=== PATIENT | male | born 1960 | race Caucasian/White ===

== ENCOUNTER 2023-09-16 07:00 | Outpatient (OUT) | payer BC, SELFPAY | END 2023-09-16 07:01 | disposition home or self-care (01) | LOC: SLEEP 07:00 | PROVIDERS: PCP Psychiatry & Neurology Neurology; Visit Provider Psychiatry & Neurology Neurology | DX: G47.33 Obstructive sleep apnea (adult) (pediatric) (principal) | CPT/HCPCS: 95806 ==

== ENCOUNTER 2023-11-29 10:56 | Outpatient (RCR) | payer BC, SELFPAY | END 2023-12-01 07:00 | disposition home or self-care (01) | LOC: PT 10:56 | PROVIDERS: PCP Psychiatry & Neurology Neurology; Visit Provider Orthopaedic Surgery | DX: Z47.1 Aftercare following joint replacement surgery (principal); Z96.652 Presence of left artificial knee joint | CPT/HCPCS: 97110; 97112; 97161 ==

== ENCOUNTER 2023-12-02 10:38 | Outpatient (RCR) | payer BC, SELFPAY | END 2024-01-17 12:26 | disposition home or self-care (01) | LOC: PT 10:38 | PROVIDERS: PCP Psychiatry & Neurology Neurology; Visit Provider Orthopaedic Surgery | DX: Z47.1 Aftercare following joint replacement surgery (principal); Z96.652 Presence of left artificial knee joint | CPT/HCPCS: 97110; 97112; 97140 ==

== ENCOUNTER 2024-09-16 11:11 | Emergency (ER) | payer BC, SELFPAY ==
[2024-09-16 11:14] VITALS: BP 183/104; PULSE 99; TEMP 36.9; O2SAT 96; BMI 29.7
--- OUTSIDE RECORDS SUMMARY | 2024-09-16 11:21 | XMS_ITS | CCD ---
Author Organization [facility] Care Team Providers Care Workers' Compensation Mediator Name Role Phone JOHNNIE MULLER Primary Care Physician [phone] Yolanda Arreola Unavailable Unavailable Johnnie Muller Unavailable Renee Del Toro Unavailable Florinda Pierce Unavailable DR JOHNNIE MULLER Primary Care Unavailabl e AMBER SPIVEY Attending Unavailable AMBER SPIVEY Consulting Unavailable AMBER SPIVEY Admitting Unavailable NO FAMILY, PHYSICIAN Primary Care Provider Unava ilable ANNE Pierce Attending Provider MD Johnnie Muller Primary Care Provider [phone] MD Johnnie Muller Attending Provider [phone] DO Wayne Adkins Referring Provider [phone] Dr. Matt Adkins Attending Unava ilable Tania Upton Unavailable Unavailable Johnnie Muller MD Primary Care Provider Rodríguez Jesus Attending Unavailable Lee GARZON Attending Unavailable Lee GARZON Attending Unavailable Mirna VILLA Attending Unavailable DO Pipe Chou Admitting Unavailable DO Tang Pipe A Referring Unavailable DO Pipe Chou A Attending Unavailable DO Tang Pipe A Referring Unavailable DO Pipe Chou Attending Unavailable DO Pipe Chou A Admitting Unavailable MD Johnnie Muller Primary Care Provider ANNE Pierce Attending Provider JACKELYN SHELLEY DO Attending Unavailable NO FAMILY PHYSICIAN, [facility] Primary Care Unavail able PIPE CHOU Attending Unavailable PIPE CHOU Referring Unavailable ABMER SPIVEY Attending Unavailable PIPE CHOU Attending Unavailable PIPE CHOU Referring Unavailable PIPE CHOU Attending Unavailable AMBER SPIVEY Attending Unavailable PIPE CHOU Attending Unavailable PIPE CHOU Referring Unavailable CODEY Chavez Attending Provider Johnnie Muller Primary Care Unavailable Johnnie Muller Admitting Unavailable Florinda Pierce Consulting Unavailable Johnnie Muller Attending Unavailable Johnnie Muller Primary Care Unavailable Gela Chavez Attending Unavailable Gela Chavez Admitting Unavailable Florinda Pierce Attending Unavailable Florinda Pierce Admitting Unavailable Johnnie Muller Primary Care Unavailable Medications Current Medications Medication Drug Class(es) Dates Sig (Normalized) Sig (Original) ascorbic acid 1000 mg oral tablet (8 sources) Vitamin C Start: 10-22-2023 take 1000 mg by mouth once daily Vitamin C 1,000 mg, Oral, Daily, Refills(s) 0, Prophylaxis Start Date: 10/22/23 Status: Ordered {1 (Ascorbic Acid 7540 MG / POLYETHYLENE GLYCOL 3350 24871 MG / Potassium Chloride 1200 MG / Sodium Ascorbate 44632 MG / Sodium Chloride 3200 MG Powder for Oral Solution) / 1 (POLYETHYLENE GLYCOL 3350 [id number] MG / Potassium Chloride 1000 MG / Sodium Chlori (2 sources) Osmotic Laxative, Vitamin C Start: 05-02-2022 take 1 dose by mouth once Plenvu oral powder for reconstitution See Instructions, 1 EA, Refill(s) 0, Per physicians instructions prior to colonoscopy, [facility], 183, cm, 05/02/22 11:01:00 EDT, Height/Length Dosing, 95, kg, 05/02/22 11:01:00 EDT, Weight Dosing Start Date: 05/02/22 Status: Ordered aspirin 81 mg delayed release oral tablet (1 source) Platelet Aggregation Inhibitor, Nonsteroidal Anti-inflammatory Drug Start: 11-06-2023 End: 12-06-2023 take 2 tablets by mouth once daily aspirin 81 mg Oral EC Tab 162 mg = 2 tab(s), Oral, Daily, X 30 day(s), # 60 tab(s), Refills(s) 0, Pharmacy: [id number], 183, cm, 10/22/23 12:24:00 EST, Height/Length Dosing, 97.2, kg, 10/22/23 12:24:00 EST, Weight Dosing Start Date: 11/06/23 Stop Date: 12/06/23 Status: Ordered celecoxib 100 mg oral capsule (4 sources) Nonsteroidal Anti-inflammatory Drug Start: 11-06-2023 CeleBREX 100 MG capsule Take 100 mg by mouth 0 11/06/2023 Active cephalexin 500 mg oral capsule (1 source) Cephalosporin Antibacterial Start: 11-06-2023 End: 11-13-2023 take 1 capsule by mouth every eight hours Keflex 500 mg Cap 500 mg = 1 cap(s), Oral, q8hr, X 7 day(s), # 21 cap(s), Refills(s) 0, Pharmacy: [id number], 183, cm, 10/22/23 12:24:00 EST, Height/Length Dosing, 97.2, kg, 10/22/23 12:24:00 EST, Weight Dosing Start Date: 11/06/23 Stop Date: 11/13/23 Status: Ordered cholecalciferol 0.125 mg oral tablet (3 sources) Vitamin D cholecalciferol (Vitamin D-3) 125 MCG (5000 UT) tablet as directed Orally 0 Active CPAP Machine (17 sources) CPAP Machine Dr. Valdivia Active docusate sodium 100 mg oral capsule (4 sources) Start: 11-06-2023 Colace 100 MG capsule Take 100 mg by mouth 0 11/06/2023 Active Elderberry preparation (3 sources) Elderberry 500 M G capsule Elderberry 0 Active famciclovir 500 mg oral tablet (1 source) Herpes Simplex Virus Nucleoside Analog DNA Polymerase Inhibitor Start: 02-08-2023 take 1 tablet by mouth every eight hours Famciclovir 500 MG 1 tablet Orally three times a day for 7 days Jan, Active Garlic preparation (5 sources) Non-Standardized Food Allergenic Extract Start: 10-22-2023 GARLIC PO Daily, Refill(s) 0, Prophylaxis 0 10/22/2023 Active Start: 10-22-2023 garlic Daily, Refill(s) 0, Prophylaxis Start Date: 10/22/23 Status: Ordered levothyroxine sodium 0.05 mg oral tablet (15 sources) l-Thyroxine Start: 07-08-2024 take 50 ug by mouth once daily Levothyroxine Active 50 MCG PO Daily July 08, 2024 1:00pm Start: 01-23-2024 End: 07-08-2024 take 1 tablet by mouth once daily Levothyroxine (Synthroid) 25 mcg tablet Discontinued 25 MCG PO Daily January 23, 2024 1:00am July 08, 2024 1:00pm Start: 10-22-2023 take 1 tablet by tawana th once daily levothyroxine 25 mcg (0.025 mg) Tab 25 mcg = 1 tab(s), Oral, Daily, Refills(s) 0, Thyroid Start Date: 10/22/23 Status: Ordered Start: 08-07-2023 take 1 tablet by tawana th once daily in the morning levothyroxine (Synthroid, Levoxyl) 25 MCG tablet TAKE 1 TABLET BY MOUTH ONCE DAILY IN THE MORNING ON AN EMPTY STOMACH FOR 30 DAYS 0 08/07/2023 Active Start: 06-14-2023 take 1 tablet by tawana th once daily in the morning Synthroid 25 MCG 1 tablet in the morning on an empty stomach Orally Once a day for 90 days Jun, Active losartan potassium 25 mg oral tablet (2 sources) Angiotensin 2 Receptor Faby Start: 11-30-2020 take 1 tablet by mouth once daily Cozaar 25 mg Tab 25 mg = 1 tab(s), Oral, Daily, # 15 tab(s), Refills(s) 0 Start Date: 11/30/20 Status: Ordered Magnesium (10 sources) Magnesium Active Multivitamin Adult - (17 sources) Multivitamin Sebastián lt - as directed Orally Active Multivitamin preparation (4 sources) Start: 01-23-2024 take 1 tablet by mouth once daily Multivitamin Active 1 TAB PO Daily January 23, 2024 1:00am Start: 10-22-2023 multivitamin O ral, Daily, Refill(s) 0, Prophylaxis Start Date: 10/22/23 Status: Ordered PHENobarbital 32.4 mg oral tablet (20 sources) Start: 01-23-2024 take 32.4 mg by mouth three times daily Phenobarbital Active 32.4 MG PO Three times daily January 23, 2024 1:00am Start: 11-18-2023 End: 05-16-2024 take 1 tablet by mouth in the morning, then take 1 tablet by mouth in the evening, then take 1 tablet by mouth at bedtime PHENobarbital (Luminal) 32.4 MG tablet Indications: Focal epilepsy (CMS/HCC) Take 1 tablet (32.4 mg) by mouth in the morning and 1 tablet (32.4 mg) in the evening and 1 tablet (32.4 mg) before bedtime. 90 tablet 5 11/18/2023 05/16/2024 Active Start: 08-30-2010 take 1 tablet by tawana th three times daily phenobarbital 30 mg oral tablet = 1 tab(s), Oral, TID, Refills(s) 0, Seizure Start Date: 08/30/10 Status: Ordered take 1 tablet by tawana th every eight hours PHENobarbital 32.4 MG 1 tablet Orally Three times a day Dr. Valdivia Active simvastatin 40 mg oral tablet (20 sources) HMG-CoA Reductase Inhibitor Start: 07-23-2024 End: 08-11-2024 take 1 tablet by mouth once daily in the evening Simvastatin Active 0 .ROUTE .COMPLEX 90 August 11, 2024 2:16pm TAKE 1 TABLET BY MOUTH ONCE DAILY IN THE EVENING Start: 07-06-2024 End: 07-23-2024 take 40 mg by mouth once daily Simvastatin Discontinue d 40 MG PO Daily July 06, 2024 9:58am July 23, 2024 7:05am Start: 01-23-2024 End: 07-06-2024 take 1 tablet by mouth once daily in the evening Simvastatin Discontinued 0 .ROUTE .COMPLEX 90 April 28, 2024 7:27am July 06, 2024 9:58am TAKE 1 TABLET BY MOUTH ONCE DAILY IN THE EVENING Start: 01-23-2024 End: 01-23-2024 take 40 mg by mouth once daily in the evening Simvastatin Discontinued 40 MG PO Every evening January 23, 2024 1:00am January 23, 2024 9:55am Start: 09-12-2021 take 1 tablet by tawana th in the evening simvastatin (Zocor) 40 MG tablet Take 40 mg by mouth in the evening. 0 03/30/2023 Active Start: 08-30-2010 take 1 tablet by tawana th once daily at bedtime simvastatin 80 mg Tab 80 mg = 1 tab(s), Oral, Once a day (at bedtime), Refills(s) 0, High cholesterol Start Date: 08/30/10 Status: Ordered ubidecarenone 100 mg / vitam in e 5 unt oral capsule (3 sources) coenzyme Q-10 10 0 MG capsule 1 (one) time each day at the same time. 0 Active Vitamin B Complex (10 sources) Vitamin B Comple x - as directed Orally Active vitamin b12 5 mg disintegrat ing oral tablet (3 sources) Vitamin B12 Cyanocobalamin ( Vitamin B-12) 5000 MCG tablet dispersible as directed Orally 0 Active Vitamin C 1000 MG (14 sources) take 1 tablet by mouth once oralia y Vitamin C 1000 MG 1 tablet Orally Once a day for 30 day(s) Active Vitamin D (2 sources) Start: 10-22-2023 Vitamin D Oral , Daily, Refills(s) 0, Prophylaxis Start Date: 10/22/23 Status: Ordered Vitamin D-3 5000 UNIT (17 sources) Vitamin D-3 5000 UNIT as directed Orally Active Completed/Discontinued Medications Medication Drug Class(es) Dates Sig (Normalized) Sig (Original) acetaminophen 325 mg / oxyCODONE hydrochloride 5 mg oral tablet (1 source) Opioid Agonist Start: 11-06-2023 Percocet 5 mg-325 mg oral tablet See Instructions, 40 tab(s), Refill(s) 0, 1-2 tab(s) Oral q4hr, [facility], 183, cm, 10/22/23 12:24:00 EST, Height/Length Dosing, 97.2, kg, 10/22/23 12:24:00 EST, Weight Dosing Start Date: 11/06/23 Status: Ordered lisinopril 5 mg oral tablet (6 sources) Angiotensin Converting Enzyme Inhibitor Start: 09-26-2021 take 1 tablet by mouth every twenty-four hours Lisinopril 5 MG 1 tablet Orally Once a day for 90 days Sep, Not-Taking phenytoin 50 mg chewable tablet (20 sources) Anti-epileptic Agent Start: 09-08-2015 End: 07-26-2024 take 1 tablet by mouth at bedtime Phenytoin (Dilantin Infatabs) 50 mg tablet,chewable Discontinued 50 MG PO .COMPLEX January 23, 2024 1:00am July 06, 2024 9:58am 50 mg orally at HS; Start: 08-30-2010 take 1 capsule by [facility] three times daily Dilantin 100 mg oral capsule, extended release 100 mg = 1 cap(s), Oral, TID, Refills(s) 0, Seizure Start Date: 08/30/10 Status: Ordered Start: 06-22-2009 End: 02-08-2024 take 1 capsule by mouth three times daily Phenytoin Sodium Extended (Dilantin Extended) 100 mg capsule Active 100 MG PO Three times daily January 23, 2024 1:00am Problems Active Problems Problem Classification Problem Date Documented Da te Episodic/Chronic Abdominal pain (4 sources) Abdominal pain 05-01-2022 Episodic Deficiency and other anemia (1 source) Other dietary vitamin B12 deficiency anemia; Translations: [OTH DIETARY VITAMIN B12 DEF ANEMIA] Onset: 01-28-2023 Episodic Diabetes mellitus without complication (20 sources) Impaired fasting glycemia; Translations: [Impaired fasting glucose] Onset: 09-14-2024 Episodic Diseases of white blood cells (19 sources) Decreased blood leukocyte number; Translations: [Decreased white blood cell count, unspecified] 07-06-2024 Chronic Disorders of lipid metabolism (20 sources) Hypercholesterolemia ; Translations: [Hyperlipidemia] Onset: 09-12-2021 Resolved: 05-07-2022 05-20-2014 Chronic Diverticulosis and diverticulitis (4 sources) Diverticular disease 02-22-2020 Chronic Epilepsy; convulsions (20 sources) Seizure disorder; Translations: [Epilepsy, unspecified, not intractable, without status epilepticus] Onset: 02-01-2022 Resolved: 05-07-2022 Chronic Epilepsy; convulsions (8 sources) Seizure; Translations: [Seizure disorder] 05-20-2014 Episodic Essential hypertension (20 sources) Hypertensive disorder; Translations: [Essential hypertension] Onset: 09-26-2021 Resolved: 05-07-2022 02-12-2014 Chronic Gastritis and duodenitis (4 sources) Gastritis 02-22-2020 Episodic Hyperplasia of prostate (4 sources) Benign prostatic hypertrophy with outflow obstruction 05-26-2020 Chronic Immunizations and screening for infectious disease (2 sources) Exposure to communicable disease; Translations: [Contact with and (suspected) exposure to other viral communicable diseases] Onset: 01-28-2023 Episodic Malaise and fatigue (3 sources) Other fatigue; Translations: [Other malaise and fatigue] Episodic Nonspecific chest pain (1 source) Other chest pain Episodic Nutritional deficiencies (1 source) Vitamin D deficiency, unspecified; Translations: [Vitamin D deficiency, unspecified] Onset: 07-07-2024 Chronic Nutritional deficiencies (3 sources) Pyridoxine deficiency; Translations: [Deficiency of other specified B group vitamins] Onset: 01-28-2023 Episodic Osteoarthritis (4 sources) Osteoarthritis of knee; Translations: [Unilateral primary osteoarthritis, left knee] Onset: 11-07-2023 Chronic Other and unspecified benign neoplasm (1 source) Polyp of colon; Translations: [Polyp of colon] Onset: 05-21-2022 Episodic Other and unspecified benign neoplasm (4 sources) Benign neoplasm of kidney 05-26-2020 Episodic Other and unspecified benign neoplasm (4 sources) History of polyp of colon 05-01-2022 Episodic Other connective tissue disease (3 sources) History of total knee arthroplasty; Translations: [Presence of left artificial knee joint] Onset: 11-17-2023 11-17-2023 Chronic Other connective tissue disease (1 source) Myalgia, unspecified site; Translations: [MYALGIA UNSPECIFIED SITE] Onset: 01-28-2023 Episodic Other diseases of kidney and ureters (4 sources) Renal mass 05-26-2020 Chronic Other disorders of stomach and duodenum (14 sources) Indigestion; Translations: [Functional dyspepsia] 07-06-2024 Episodic Other fractures (1 source) Fracture of fifth lumbar vertebra; Translations: [Unspecified fracture of fifth lumbar vertebra, initial encounter for closed fracture] 07-28-2024 Episodic Other fractures (1 source) Fracture of fourth lumbar vertebra; Translations: [Unspecified fracture of fourth lumbar vertebra, initial encounter for closed fracture] 07-28-2024 Episodic Other fractures (1 source) Fracture of lumbar spine; Translations: [Unspecified fracture of unspecified lumbar vertebra, initial encounter for closed fracture] 07-28-2024 Episodic Other fractures (1 source) Unspecified fracture of unspecified lumbar vertebra, initial encounter for closed fracture; Translations: [Closed fracture of lumbar vertebra without mention of spinal cord injury] 07-28-2024 Episodic Other fractures (1 source) Unspecified fracture of fourth lumbar vertebra, initial encounter for closed fracture; Translations: [Unspecified fracture of fourth lumbar vertebra, initial encounter for closed fracture] Onset: 08-26-2024 Episodic Other fractures (1 source) Unspecified fracture of fifth lumbar vertebra, initial encounter for closed fracture; Translations: [Unspecified fracture of fifth lumbar vertebra, initial encounter for closed fracture] Onset: 08-26-2024 Episodic Other lower respiratory disease (7 sources) Abnormal breathing; Translations: [Unspecified abnormalities of breathing] 07-06-2024 Episodic Other lower respiratory disease (3 sources) Unspecified abnormalities of breathing Episodic Other male genital disorders (4 sources) 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 Other nervous system disorders (1 source) Polyneuropathy, unspecified; Translations: [POLYNEUROPATHY UNSPECIFIED] Onset: 01-28-2023 Chronic Other nervous system disorders (1 source) Hereditary and idiopathic neuropathy, unspecified; Translations: [HEREDITARY IDIOPATH NEUROPATHY UNS] Onset: 01-28-2023 Chronic Other nervous system disorders (3 sources) Difficulty walking; Translations: [Difficulty in walking, not elsewhere classified] Onset: 11-17-2023 11-17-2023 Chronic Other non-traumatic joint disorders (3 sources) Pain in left knee; Translations: [Pain in joint, lower leg] Onset: 11-17-2023 11-17-2023 Episodic Other screening for suspected conditions (not mental disorders or infectious disease) (4 sources) Encounter for screening for malignant neoplasm of prostate; Translations: [Other specified abnormal findings of blood chemistry] Onset: 01-28-2023 Episodic Peripheral and visceral atherosclerosis (1 source) Generalized atherosclerosis; Translations: [GENERALIZED ATHEROSCLEROSIS] Onset: 01-28-2023 Chronic Residual codes; unclassified (19 sources) Sleep apnea; Translations: [Sleep apnea, unspecified] 07-06-2024 Chronic Residual codes; unclassified (20 sources) Obstructive sleep apnea syndrome; Translations: [Obstructive sleep apnea (adult) (pediatric)] Onset: 04-30-2023 10-22-2023 Chronic Residual codes; unclassified (4 sources) Obstructive sleep apnea (adult) (pediatric) Onset: 05-07-2022 Resolved: 05-07-2022 Chronic Residual codes; unclassified (2 sources) Sleep apnea, unspecified; Translations: [Unspecified sleep apnea] Onset: 02-01-2022 Resolved: 02-01-2022 Chronic Spondylosis; intervertebral disc disorders; other back problems (6 sources) Backache; Translations: [Nerve root disorder] 02-22-2020 Episodic Thyroid disorders (16 sources) Hypothyroidism; Translations: [Hypothyroidism, unspecified] Onset: 09-14-2024 Chronic Past or Other Problems Problem Classification Problem Date Documented Da te Episodic/Chronic Other circulatory disease (1 source) Elevated blood-pressure reading, without diagnosis of hypertension Onset: 09-12-2021 Resolved: 09-12-2021 Episodic Other disorders of stomach and duodenum (2 sources) Functional dyspepsia Onset: 03-07-2022 Resolved: 05-07-2022 Episodic Other injuries and conditions due to external causes (3 sources) H/O: head injury; Translations: [Personal history of other (healed) physical injury and trauma] Onset: 04-30-2023 04-30-2023 Episodic Results Test Name Value Interpretation Reference Range Facility Complete Blood Count Auto Di ffon 09-14-2024 Basophils (Bld) [#/Vol] 0.0 10*3/uL Normal 0.0-0.2 [facility] Comment on above: Result Comment: PERF ORMED BY: [place] [address] PATHOLOGIST FRONT DESK SUPERVISOR RAMONA GARCIA M.D. Performed By: #### L IPID, TSH3, CMP, CBC, PSAS #### [address] Basophils/100 WBC (Bld) 1.2 % Normal . Jose Enrique salazar [facility] Comment on above: Performed By: #### L IPID, TSH3, CMP, CBC, PSAS #### [address] Eosinophils (Bld) [#/Vol] 0.3 10*3/uL Normal 0.0-0.45 [facility] Comment on above: Performed By: #### L IPID, TSH3, CMP, CBC, PSAS #### [facility] [address] Eosinophils/100 WBC (Bld) 8.3 % Normal . [facility] Comment on above: Performed By: #### L IPID, TSH3, CMP, CBC, PSAS #### [address] Erythrocyte distribution width (RBC) [Ratio] 13.3 % Normal 12.0-14.8 [facility] Comment on above: Performed By: #### L IPID, TSH3, CMP, CBC, PSAS #### [address] Hematocrit (Bld) [Volume fraction] 40.9 % Normal 38.8-50.0 [facility] Comment on above: Performed By: #### L IPID, TSH3, CMP, CBC, PSAS #### [address] Hemoglobin (Bld) [Mass/Vol] 14.0 g/dL Normal 13.0-17.0 [facility] Comment on above: Performed By: #### L IPID, TSH3, CMP, CBC, PSAS #### [address] Lymphocytes (Bld) [#/Vol] 0.7 10*3/uL Low 1.00-4.8 [facility] Comment on above: Performed By: #### L IPID, TSH3, CMP, CBC, PSAS #### [address] Lymphocytes/100 WBC (Bld) 19.5 % Normal . [facility] Comment on above: Performed By: #### L IPID, TSH3, CMP, CBC, PSAS #### [address] MCH (RBC) [Entitic mass] 31.1 pg Normal 27.5-35.2 [facility] Comment on above: Performed By: #### L IPID, TSH3, CMP, CBC, PSAS #### [address] MCV (RBC) [Entitic vol] 90.7 fL Normal 83.5-101 T [facility] Comment on above: Performed By: #### L IPID, TSH3, CMP, CBC, PSAS #### [address] Mean Corpuscular HGB Conc 34.3 g/dL Normal 32.5-35.6 [facility] Comment on above: Performed By: #### L IPID, TSH3, CMP, CBC, PSAS #### [address] Monocytes (Bld) [#/Vol] 0.5 10*3/uL Normal 0.0-0.8 [facility] Comment on above: Performed By: #### L IPID, TSH3, CMP, CBC, PSAS #### [address] Monocytes/100 WBC (Bld) 12.9 % Normal . T [facility] Comment on above: Performed By: #### L IPID, TSH3, CMP, CBC, PSAS #### [place] [address] [place] Neutrophils (Bld) [#/Vol] 2.0 10*3/uL Normal 1.8-7.7 [facility] Comment on above: Performed By: #### L IPID, TSH3, CMP, CBC, PSAS #### [place] [address] [place] Neutrophils/100 WBC (Bld) 58.1 % Normal . [facility] Comment on above: Performed By: #### L IPID, TSH3, CMP, CBC, PSAS #### [address] NRBC% 0.1 /100{WBC} Normal 0-0.5 [facility] Comment on above: Performed By: #### L IPID, TSH3, CMP, CBC, PSAS #### [place] [address] [place] Platelet mean volume (Bld) [Entitic vol] 8.6 fL Normal 6.6-10.1 [facility] Comment on above: Performed By: #### L IPID, TSH3, CMP, CBC, PSAS #### [place] [address] [place] Platelets (Bld) [#/Vol] 206 10*3/uL Normal 150-450 [facility] Comment on above: Performed By: #### L IPID, TSH3, CMP, CBC, PSAS #### [address] RBC (Bld) [#/Vol] 4.51 10*6/uL Normal 3.90-5.60 [facility] Comment on above: Performed By: #### L IPID, TSH3, CMP, CBC, PSAS #### [address] WBC (Bld) [#/Vol] 3.5 10*3/uL Low 4.1-10.5 [facility] Comment on above: Performed By: #### L IPID, TSH3, CMP, CBC, PSAS #### [address] Comprehensive Metabolic Pane marisa 09-14-2024 Albumin [Mass/Vol] 4.5 g/dL Normal 3.5-5.7 [facility] Comment on above: Performed By: #### L IPID, TSH3, CMP, CBC, PSAS #### [address] Albumin/Globulin [Mass ratio] 1.5 {ratio} Normal [facility] Comment on above: Performed By: #### L IPID, TSH3, CMP, CBC, PSAS #### [address] ALP [Catalytic activity/Vol] 108 U/L High 34-104 [facility] Comment on above: Performed By: #### L IPID, TSH3, CMP, CBC, PSAS #### [address] ALT [Catalytic activity/Vol] 18 U/L Normal 7-52 [facility] Comment on above: Performed By: #### L IPID, TSH3, CMP, CBC, PSAS #### [address] Anion gap [Moles/Vol] 12.8 mmol/L Normal 6.0-15.0 [facility] e [facility] Comment on above: Performed By: #### L IPID, TSH3, CMP, CBC, PSAS #### [address] AST [Catalytic activity/Vol] 17 U/L Normal 13-39 [facility] Comment on above: Performed By: #### L IPID, TSH3, CMP, CBC, PSAS #### [address] Bilirubin [Mass/Vol] 0.5 mg/dL Normal 0.3-1.0 [facility] Comment on above: Performed By: #### L IPID, TSH3, CMP, CBC, PSAS #### [address] Calcium [Mass/Vol] 9.4 mg/dL Normal 8.6-10.3 The [facility] Comment on above: Performed By: #### L IPID, TSH3, CMP, CBC, PSAS #### [address] Chloride [Moles/Vol] 104 mmol/L Normal 98-107 [facility] Comment on above: Performed By: #### L IPID, TSH3, CMP, CBC, PSAS #### [address] CO2 [Moles/Vol] 26.1 mmol/L Normal 21.0-31.0 [facility] Comment on above: Performed By: #### L IPID, TSH3, CMP, CBC, PSAS #### [place] [address] [place] Creatinine [Mass/Vol] 0.70 mg/dL Normal 0.70-1.30 [facility] Comment on above: Performed By: #### L IPID, TSH3, CMP, CBC, PSAS #### [place] [address] [place] GFR/1.73 sq M.predicted MDRD (S/P/Bld) [Vol rate/Area] mL/min/{1.73_m2} Normal [facility] Comment on above: Performed By: #### L IPID, TSH3, CMP, CBC, PSAS #### [address] Globulin (S) [Mass/Vol] 3.0 g/dL Normal T he [facility] Comment on above: Performed By: #### L IPID, TSH3, CMP, CBC, PSAS #### [address] Glucose [Mass/Vol] 109 mg/dL High 70-100 [facility] Comment on above: Result Comment: [facility] Glucose Reference Range is dependent on time and content of last meal. Glucose of more than 200 mg/dL in a nonstressed, ambulatory subject supports the diagnosis of Diabetes Mellitus. ADA recommended reference range Performed By: #### L IPID, TSH3, CMP, CBC, PSAS #### [address] Potassium [Moles/Vol] 3.9 mmol/L Normal 3.5-5.1 [facility] Comment on above: Performed By: #### L IPID, TSH3, CMP, CBC, PSAS #### [address] Protein [Mass/Vol] 7.5 g/dL Normal 6.4-8.9 [facility] Comment on above: Performed By: #### L IPID, TSH3, CMP, CBC, PSAS #### [address] Sodium [Moles/Vol] 139 mmol/L Normal 136-145 [facility] Comment on above: Performed By: #### L IPID, TSH3, CMP, CBC, PSAS #### [address] Urea nitrogen [Mass/Vol] 13 mg/dL Normal 7-25 [facility] Comment on above: Performed By: #### L IPID, TSH3, CMP, CBC, PSAS #### [address] Free T4 (Free Thyroxine)on 1 Free T4 [Mass/Vol] 0.63 ng/dL Normal 0.61-1.12 [facility] Comment on above: Result Comment: PERF ORMED BY: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 1.0-4.0 [facility] Comment on above: Order Comment: Order Added by Discern Expert. Performed By: #### 2 728768, 4619863, 3767227, 3007984, 9184306, 39756945 ####[address] [address] Monocytes/100 WBC (Bld) 10.0 % Normal 4.0-14.0 [facility] Comment on above: Order Comment: Order Added by Discern Expert. Performed By: #### 2 504107, 9904377, 9065544, 2870857, 5465486, 15650694 ####[address] [address] Monocytes/Leukocytes Auto (Bld) [Pure # fraction] 0.8 E9/L Normal 0.2-1.0 [facility] Comment on above: Order Comment: Order Added by Discern Expert. Performed By: #### 2 105546, 4655483, 6515002, 1837875, 6454727, 26817275 ####[address] [place] [address] Neutrophils/100 WBC (Bld) 78.2 % High 36.0-75.0 [facility] Comment on above: Order Comment: Order Added by Discern Expert. Performed By: #### 2 688032, 1099176, 4536165, 1479109, 1695334, 70829566 ####[address] [place] [address] Neutrophils/Leukocytes Auto (Bld) [Pure # fraction] 6.6 E9/L Normal 2.0-7.5 [facility] Comment on above: Order Comment: Order Added by Discern Expert. Performed By: #### 2 458876, 1187743, 5499845, 7379271, 6743625, 39336470 ####[address] [place] [address] BUNon 11-07-2023 Urea nitrogen [Mass/Vol] 9 mg/dL Normal 5-21 [facility] Comment on above: Performed By: #### 2 306208, 2784678, 2104338, 6457633, 0694797, 65798244 ####[address] [place] [address] CBC w/ Auto Diffon 3 Erythrocyte distribution width (RBC) [Ratio] 12.8 % Normal 10.9-14.2 [facility] Comment on above: Performed By: #### 2 084192, 3757296, 6104447, 5607929, 1592983, 59391845 ####[address] [place] [address] Hematocrit (Bld) [Volume fraction] 36.0 % Low 37.7-49.0 [facility] Comment on above: Performed By: #### 2 734672, 7632783, 3754903, 4754383, 1842236, 05137154 ####[facility] [address] [place] [address] Hemoglobin (Bld) [Mass/Vol] 12.2 g/dL Low 13.5-17.5 [facility] Comment on above: Performed By: #### 2 685753, 5476511, 9545216, 7680533, 8281948, 64575602 ####[address] [address] MCH (RBC) [Entitic mass] 31.1 pg Normal 27.0-34.0 [facility] Comment on above: Performed By: #### 2 167560, 4434426, 5932990, 8883399, 3487330, 47984060 ####[address] [address] MCHC (RBC) [Mass/Vol] 33.9 g/dL Normal 31.4-36.0 [facility] Comment on above: Performed By: #### 2 898224, 0513516, 0916917, 8637397, 5715861, 55506264 ####[address] [address] MCV (RBC) [Entitic vol] 91.8 fL Normal 80.0-100.0 [facility] Comment on above: Performed By: #### 2 368284, 8313158, 6873193, 4341660, 6925515, 95949267 ####[address] [place] [address] Platelet mean volume (Bld) [Entitic vol] 8.5 fL Normal 6.4-10.8 [facility] Comment on above: Performed By: #### 2 814773, 7902294, 8074808, 9464799, 4129839, 28724819 ####[address] [address] Platelets (Bld) [#/Vol] 178.0 E9/L Normal 150.0-500.0 [facility] Comment on above: Performed By: #### 2 073456, 2608538, 3462299, 6638102, 1629555, 79075920 ####[facility] [address] [place] [address] RBC (Bld) [#/Vol] 3.9 E12/L Low 4.3-5.9 [facility] Comment on above: Performed By: #### 2 203717, 9446226, 7691912, 5289282, 4776062, 96431016 ####[facility] [address] [place] [address] WBC corrected for nucl RBC Auto (Bld) [#/Vol] 8.4 E9/L Normal 4.0-11.0 [facility] Comment on above: Performed By: #### 2 002239, 5401965, 1531891, 4184004, 2787882, 80264957 ####[facility] [address] [place] [address] CHEMISTRYOrdered By: SYSTEM SYSTEM on 11-07-2023 Anion gap [Moles/Vol] 11 mmol/L Normal 6 - 16 mEq/L F C [facility] Chloride [Moles/Vol] 107 mmol/L Normal 101 - 1 11 mmol/L [facility] Remisol CO2 [Moles/Vol] 26 mmol/L Normal 21 - 31 mmol/L [facility] Remisol Creatinine [Mass/Vol] 0.7 mg/dL Normal 0.5 - 1.3 mg/dL [facility] Remisol GFR/1.73 sq M.predicted among non-blacks MDRD (S/P/Bld) [Vol rate/Area] 104 mL/min/1.73 m2 Normal >=59mL/min/1 .73 m2 [facility] Chem S Comment on above: Interpretive Data: C hronic kidney disease could be indicated at eGFR's of less than 60 mL/min/1.73m2. Kidney failure is indicated at less than 15 mL/min/1.73m2. Potassium [Moles/Vol] 4.0 mmol/L Normal 3.5 - 5.3 mmol/L [facility] Remisol Sodium [Moles/Vol] 140 mmol/L Normal 135 - 145 mmol/L [facility] Remisol Urea nitrogen [Mass/Vol] 9 mg/dL Normal 5 - 21 mg/dL [facility] Remisol Consent for Anesthesiaon Consent for Anesthesia [id number]# 1.00TIFF Normal [facility] Creatinineon 11-07-2023 Creatinine [Mass/Vol] 0.7 mg/dL Normal 0.5-1.3 [facility] Comment on above: Performed By: #### 2 197679, 9286325, 9737699, 3562951, 5698772, 69055156 ####[facility] [address] [place] [address] Discharge Instructionson Discharge Instructions [id number] #1.00TIFF Normal [facility] Discharge Note-Nursingon Discharge Note-Nursing MARIAARACHEL :1960 Visit Date:11/06/2023 Inpatient Discharge Instructions Your Care Team Admitting Physician - Pipe Chou DO Referring Physician - Pipe Chou DO Reason for Your Visit OSTEOARTHRITIS LEFT KNEE Your Diagnosis Degenerative arthritis of left knee Tests Performed ABO/Rh Antibody Screen Automated Diff eGFR -- Results Pending -- UA With Cult Reflex XR Knee 1 or 2 Views Left Please visit your patient portal for your results or contact your primary care physician. This Is Your Medications List acetaminophen-oxycodo ne (Percocet 5 mg-325 mg oral tablet) ascorbic acid (Vitamin C) aspirin (aspirin 81 mg Oral EC Tab) celecoxib (CeleBREX 100 mg Cap) cephalexin (Keflex 500 mg Cap) docusate (Colace 100 mg Cap) ergocalciferol (Vitamin D) garlic levothyroxine (levothyroxine 25 mcg (0.025 mg) Tab) multivitamin phenobarbital (phenobarbital 30 mg oral tablet) phenytoin (Dilantin 100 mg oral capsule, extended release) phenytoin (phenytoin 50 mg Chew Tab) simvastatin (simvastatin 80 mg Tab) Procedure History Total knee replacement (11/06/2023), Colonoscopy (05/21/2022), History of knee surgery, left shoulder surgery. Discharge Vitals Temperature (Oral) 37.1 ?C Heart Rate (Monitored) 88 Respiratory Rate 18 Blood Pressure 126/70 What to do next Instructions From Your Doctor Event Name Event Result Pending Diagnostic Test Results None Pharmacy Information Other: [facility] [place] [facility] [place] New Follow Up Appointments after Discharge Follow Up with Pipe Chou When: Where: [address] [place] [address]- [employer] (1) Follow Up with JOHNNIE MULLER When: In 0 days Where: [address] [place] [address]- [employer] (1) Medications What How Much When Instructions Next Dose Unchanged acetaminophen-oxycodo ne (Percocet 5 mg-325 mg oral tablet) See instructions 1-2 tab(s) Oral q4hr Pickup at [facility] Unchanged ascorbic acid (Vitamin C) 1,000 Milligram By Mouth Every day Unchanged aspirin (aspirin 81 mg Oral EC Tab) 2 Tablets By Mouth Every day Duration: 30 Days Pickup at [facility] Unchanged celecoxib (CeleBREX 100 mg Cap) 1 Capsules By Mouth 2 times a day as needed for for pain Pickup at [facility] Unchanged cephalexin (Keflex 500 mg Cap) 1 Capsules By Mouth Every 8 hours Duration: 7 Days Pickup at [facility] Unchanged docusate (Colace 100 mg Cap) 1 Capsules By Mouth 2 times a day as needed for for constipation Pickup at [facility] Unchanged ergocalciferol (Vitamin D) By Mouth Every day Unchanged garlic Every day Unchanged levothyroxine (levothyroxine 25 mcg (0.025 mg) Tab) 1 Tablets By Mouth Every day Unchanged multivitamin By Mouth Every day Unchanged phenobarbital (phenobarbital 30 mg oral tablet) 1 Tablets By Mouth 3 times a day Unchanged phenytoin (Dilantin 100 mg oral capsule, extended release) 1 Capsules By Mouth 3 times a day Unchanged phenytoin (phenytoin 50 mg Chew Tab) 1 Tablets By Mouth At bedtime Unchanged simvastatin (simvastatin 80 mg Tab) 1 Tablets By Mouth Once a day (at bedtime) Pharmacy Information [facility]: [address] [place], [place] [id number] [phone] Test Results CBC WBC: 8.4 E9/L (11/07/23 04:53:00) RBC: 3.9 E12/L Low (11/07/23 04:53:00) HGB: 12.2 gm/dL Low (11/07/23 04:53:00) Hct: 36 % Low (11/07/23 04:53:00) MCV: 91.8 fL (11/07/23 04:53:00) MCH: 31.1 pg (11/07/23 04:53:00) MCHC: 33.9 gm/dL (11/07/23 04:53:00) RDW: 12.8 % (11/07/23 04:53:00) Platelet: 178 E9/L (11/07/23 04:53:00) MPV: 8.5 fL (11/07/23 04:53:00) Allergies No Known Allergies Problems Ongoing - Any problem that you are currently receiving treatment for. Abdominal pain Angiomyolipoma BPH with urinary obstruction History of colon polyps hypercholesterol Hypertension Hypertension organic impotence Renal mass Historical - Any problem that you are no longer receiving treatment for. chronic lower back pain Diverticular disease Gastritis Hyperlipidemia Seizure disorder seizures Devices Implanted/Removed This Visit Notice: You have devices implanted this visit that may not be MRI compatible. Implanted KNEE TOTAL ROBOT ARTHROPLASTY Knee L ASYMMETRIC PATELLA 11/06/2023 CRUCIATE RETAINING FEMORAL 11/06/2023 TIBIAL BEARING INSERT - CS 11/06/2023 TIBIAL COMPONENT 11/06/2023 Education [employer] [place], [facility] DISCHARGE INSTRUCTIONS: TOTAL KNEE ARTHROPLASTY INCISION CARE: The bandage may be changed by your home Physical Therapist at 7 days postoperatively and worn an additional 7 days. A new Mepilex bandage should then be placed. The bandage is waterproof, so you may shower at home. Steri-strips (paper tape strips) may be applied to the incision if a (more content not included)... Normal [facility] Discharge Note-Nursing RACHEL HENRIQUEZ :1960 Visit Date:11/06/2023 Inpatient Discharge Instructions Your Care Team Admitting Physician - Pipe Chou DO Referring Physician - Pipe Chou DO Reason for Your Visit OSTEOARTHRITIS LEFT KNEE Your Diagnosis Degenerative arthritis of left knee Tests Performed ABO/Rh Antibody Screen Automated Diff eGFR -- Results Pending -- UA With Cult Reflex XR Knee 1 or 2 Views Left Please visit your patient portal for your results or contact your primary care physician. This Is Your Medications List acetaminophen-oxycodo ne (Percocet 5 mg-325 mg oral tablet) ascorbic acid (Vitamin C) aspirin (aspirin 81 mg Oral EC Tab) celecoxib (CeleBREX 100 mg Cap) cephalexin (Keflex 500 mg Cap) docusate (Colace 100 mg Cap) ergocalciferol (Vitamin D) garlic levothyroxine (levothyroxine 25 mcg (0.025 mg) Tab) multivitamin phenobarbital (phenobarbital 30 mg oral tablet) phenytoin (Dilantin 100 mg oral capsule, extended release) phenytoin (phenytoin 50 mg Chew Tab) simvastatin (simvastatin 80 mg Tab) Procedure History Total knee replacement (11/06/2023), Colonoscopy (05/21/2022), History of knee surgery, left shoulder surgery. Discharge Vitals Temperature (Oral) 37.1 ?C Heart Rate (Monitored) 88 Respiratory Rate 18 Blood Pressure 126/70 What to do next Instructions From Your Doctor Event Name Event Result Pending Diagnostic Test Results None Pharmacy Information Other: [facility] [place] New Follow Up Appointments after Discharge Follow Up with Pipe Chou When: 11/21/2023 10:00 AM EST Where: [address] [place] [address]- Business (1) Follow Up with JOHNNIE MULLER When: In 0 days Where: [address] [place] [address]- [employer] (1) Medications What How Much When Instructions Next Dose Unchanged acetaminophen-oxycodo ne (Percocet 5 mg-325 mg oral tablet) See instructions 1-2 tab(s) Oral q4hr Pickup at [facility] Take 1-2 tablets every 4 hours as needed for severe pain. Unchanged ascorbic acid (Vitamin C) 1,000 Milligram By Mouth Every day 11/08/23 Unchanged aspirin (aspirin 81 mg Oral EC Tab) 2 Tablets By Mouth Every day Duration: 30 Days Pickup at [facility] 11/08/23 Unchanged celecoxib (CeleBREX 100 mg Cap) 1 Capsules By Mouth 2 times a day as needed for for pain Pickup at [facility] 11/07/23 @ 9pm Unchanged cephalexin (Keflex 500 mg Cap) 1 Capsules By Mouth Every 8 hours Duration: 7 Days Pickup at [facility] 11/08/23 @ 9am, 2pm and 10pm Unchanged docusate (Colace 100 mg Cap) 1 Capsules By Mouth 2 times a day as needed for for constipation Pickup at [facility] 11/07/23 @ 9pm Unchanged ergocalciferol (Vitamin D) By Mouth Every day 11/08/23 Unchanged garlic Every day 11/08/23 Unchanged levothyroxine (levothyroxine 25 mcg (0.025 mg) Tab) 1 Tablets By Mouth Every day 11/08/23 Unchanged multivitamin By Mouth Every day 11/08/23 Unchanged phenobarbital (phenobarbital 30 mg oral tablet) 1 Tablets By Mouth 3 times a day 11/07/23 @ 2pm Unchanged phenytoin (Dilantin 100 mg oral capsule, extended release) 1 Capsules By Mouth 3 times a day 11/07/23 @ 2pm Unchanged phenytoin (phenytoin 50 mg Chew Tab) 1 Tablets By Mouth At bedtime 11/07/23 @9pm Unchanged simvastatin (simvastatin 80 mg Tab) 1 Tablets By Mouth Once a day (at bedtime) 11/07/23 @ 9pm Pharmacy Information [facility]: [address] [place], [place] [id number] [phone] Test Results CBC WBC: 8.4 E9/L (11/07/23 04:53:00) RBC: 3.9 E12/L Low (11/07/23 04:53:00) HGB: 12.2 gm/dL Low (11/07/23 04:53:00) Hct: 36 % Low (11/07/23 04:53:00) MCV: 91.8 fL (11/07/23 04:53:00) MCH: 31.1 pg (11/07/23 04:53:00) MCHC: 33.9 gm/dL (11/07/23 04:53:00) RDW: 12.8 % (11/07/23 04:53:00) Platelet: 178 E9/L (11/07/23 04:53:00) MPV: 8.5 fL (11/07/23 04:53:00) Allergies No Known Allergies Problems Ongoing - Any problem that you are currently receiving treatment for. Abdominal pain Angiomyolipoma BPH with urinary obstruction History of colon polyps hypercholesterol Hypertension Hypertension organic impotence Renal mass Historical - Any problem that you are no longer receiving treatment for. chronic lower back pain Diverticular disease Gastritis Hyperlipidemia Seizure disorder seizures Devices Implanted/Removed This Visit Notice: You have devices implanted this visit that may not be MRI compatible. Implanted KNEE TOTAL ROBOT ARTHROPLASTY Knee L ASYMMETRIC PATELLA 11/06/2023 CRUCIATE RETAINING FEMORAL 11/06/2023 TIBIAL BEARING INSERT - CS 11/06/2023 TIBIAL COMPONENT 11/06/2023 [employer], [facility] DISCHARGE INSTRUCTIONS: TOTAL KNEE ARTHROPLASTY INCISION CARE: The bandage may be changed by your home Physic (more content not included)... Normal [facility] HEMATOLOGYOrdered By: SYSTEM SYSTEM on 11-07-2023 Basophils/100 WBC (Bld) 0.4 % Normal 0.0 - 2.0 % [facility] Basophils/Leukocytes Auto (Bld) [Pure # fraction] 0.0 E9/L Normal 0.0 - 0.2 E9/L [facility] Eosinophils/100 WBC (Bld) 0.2 % Normal 0.0 - 8.0 % [facility] Eosinophils/Leukocytes Auto (Bld) [Pure # fraction] 0.0 E9/L Normal 0.0 - 0.5 E9/L [facility] Lymphocytes/100 WBC (Bld) 11.2 % Low 14.0 - 50.0 % [facility] Lymphocytes/Leukocytes Auto (Bld) [Pure # fraction] 0.9 E9/L Low 1.0 - 4.0 E9/L [facility] Monocytes/100 WBC (Bld) 10.0 % Normal 4.0 - 14.0 % [facility] Monocytes/Leukocytes Auto (Bld) [Pure # fraction] 0.8 E9/L Normal 0.2 - 1.0 E9/L [facility] Neutrophils/100 WBC (Bld) 78.2 % High 36.0 - 75.0 % [facility] Neutrophils/Leukocytes Auto (Bld) [Pure # fraction] 6.6 E9/L Normal 2.0 - 7.5 E9/L [facility] HEMATOLOGYOrdered By: Quan Oconnell on 11-07-2023 Erythrocyte distribution width (RBC) [Ratio] 12.8 % Normal 10.9 - 14.2 % [facility] Hematocrit (Bld) [Volume fraction] 36.0 % Low 37.7 - 49.0 % [facility] Hemoglobin (Bld) [Mass/Vol] 12.2 g/dL Low 13.5 - 17.5 gm/dL [facility] MCH (RBC) [Entitic mass] 31.1 pg Normal 27.0 - 34.0 pg [facility] MCHC (RBC) [Mass/Vol] 33.9 g/dL Normal 31.4 - 36.0 gm/dL [facility] MCV (RBC) [Entitic vol] 91.8 fL Normal 80.0 - 100.0 fL [facility] Platelet mean volume (Bld) [Entitic vol] 8.5 fL Normal 6.4 - 10.8 fL [facility] Platelets (Bld) [#/Vol] 178.0 E9/L Normal 150. 0 - 500.0 E9/L [facility] RBC (Bld) [#/Vol] 3.9 E12/L Low 4.3 - 5.9 E12/L [facility] WBC corrected for nucl RBC Auto (Bld) [#/Vol] 8.4 E9/L Normal 4.0 - 11.0 E9/L [facility] Inpatient Clinical Summaryon 11-07-2023 Inpatient Clinical Summary [place] [address] Clinical Summary Person Information: Name: RACHEL HENRIQUEZ Age: 63 Years : 1960 Sex: Male PCP: JOHNNIE MULLER MD Marital Status: Single Race: White Ethnicity: Non- or Language: Emirati Visit Id: Visit Reason: OSTEOARTHRITIS LEFT KNEE Speciality: Acuity: Enc Type: Observation Med Service: Surgery Arrival: 11/06/2023 08:37:27 Discharge: Dispo Type: Address: [address] [place] [id number] Provider Notes: Patient: RACHEL HENRIQUEZ Age: 63 years Sex: Male : 1960 Associated Diagnoses: None Author: Pipe Chou DO Discharge Information Discharge Summary Information: Admit Date/Time: 11/06/23 08:37 Discharge Date/Time: 11/07/23 07:17 Admitting Physician: Pipe Chou DO Referring Physician for Admission: Pipe Chou DO Consulting Physicians: none Admitting Diagnoses: DJD left knee procedure: L TKA discharge disposition: home Discharge Diagnoses: Unilateral primary osteoarthritis, left knee Prescription and Home Meds: acetaminophen-oxycodo ne (Percocet 5 mg-325 mg oral tablet) See Instructions, 1-2 tab(s) Oral q4hr, 40 tab(s), 0 Refill(s) ascorbic acid (Vitamin C) 1,000 mg, Oral, Daily, 0 Refill(s) aspirin (aspirin 81 mg Oral EC Tab) 162 mg, 2 tab(s), Oral, Daily, for 30 day(s), 60 tab(s), 0 Refill(s) celecoxib (CeleBREX 100 mg Cap) 100 mg, 1 cap(s), Oral, BID, PRN: for pain, 60 cap(s), 2 Refill(s) cephalexin (Keflex 500 mg Cap) 500 mg, 1 cap(s), Oral, q8hr, for 7 day(s), 21 cap(s), 0 Refill(s) docusate (Colace 100 mg Cap) 100 mg, 1 cap(s), Oral, BID, PRN: for constipation, 20 cap(s), 0 Refill(s) ergocalciferol (Vitamin D) Oral, Daily, 0 Refill(s) garlic Daily, 0 Refill(s) levothyroxine (levothyroxine 25 mcg (0.025 mg) Tab) 25 mcg, 1 tab(s), Oral, Daily, 0 Refill(s) multivitamin Oral, Daily, 0 Refill(s) phenobarbital (phenobarbital 30 mg oral tablet) 1 tab(s), Oral, TID, 0 Refill(s) phenytoin (Dilantin 100 mg oral capsule, extended release) 100 mg, 1 cap(s), Oral, TID, 0 Refill(s) phenytoin (phenytoin 50 mg Chew Tab) 50 mg, 1 tab(s), Oral, Bedtime, 0 Refill(s) simvastatin (simvastatin 80 mg Tab) 80 mg, 1 tab(s), Oral, Once a day (at bedtime), 0 Refill(s) Diagnosis: Degenerative arthritis of left knee Problems Active History of colon polyps Abdominal pain Angiomyolipoma BPH with urinary obstruction Renal mass organic impotence hypercholesterol Hypertension Hypertension Smoking Status: Functional Status: Sensory Deficits: History of Falls: Mobility Assistance Prior to Admission: ADLs: Current Level of Assistance for Self-Care/Mobility: Cognitive Status: Allergies No Known Allergies Measurements: Height: Weight: Blood Pressure: 126 mmHg / 70 mmHg BMI: Procedures Total knee replacement (11/06/2023) Immunizations No Immunizations Documented This Visit Final Med List: acetaminophen-oxycodo ne (Percocet 5 mg-325 mg oral tablet) 1-2 tab(s) Oral q4hr. Refills: 0. ascorbic acid (Vitamin C) 1,000 Milligram By Mouth every day. aspirin (aspirin 81 mg Oral EC Tab) 2 Tablets By Mouth every day for 30 Days. Refills: 0. celecoxib (CeleBREX 100 mg Cap) 1 Capsules By Mouth 2 times a day as needed for pain. Refills: 2. cephalexin (Keflex 500 mg Cap) 1 Capsules By Mouth every 8 hours for 7 Days. Refills: 0. docusate (Colace 100 mg Cap) 1 Capsules By Mouth 2 times a day as needed for constipation. Refills: 0. ergocalciferol (Vitamin D) By Mouth every day. garlic every day. levothyroxine (levothyroxine 25 mcg (0.025 mg) Tab) 1 Tablets By Mouth every day. multivitamin By Mouth every day. phenobarbital (phenobarbital 30 mg oral tablet) 1 Tablets By Mouth 3 times a day. phenytoin (Dilantin 100 mg oral capsule, extended release) 1 Capsules By Mouth 3 times a day. phenytoin (phenytoin 50 mg Chew Tab) 1 Tablets By Mouth at bedtime. simvastatin (simvastatin 80 mg Tab) 1 Tablets By Mouth once a day (at bedtime). Care Team Members: Attending Physician: Pipe Chou DO Consulting Physician: Referring Physician: Pipe Chou DO Follow up: With: Address: When: [place] [address] Business (1) 11/21/2023 10:00 AM With: Address: When: JOHNNIE MULLER [address] [place] [id number] Business (1) Patient Education Information: eDs Chou - Total Knee Arthroplasty (Custom) [facility] Inpatient Patient Summaryon 11-07-2023 Inpatient Patient Summary [address] [address] Patient Discharge Instructions PERSON INFORMATION Name: RACHEL HENRIQUEZ Date of : 1960 Current Date: 11/07/2023 08:20:01 PHYSICIANS Admitting Physician: Pipe Chou DO Primary Care Physician: JOHNNIE MULLER MD PCP Comment: Discharge Diagnosis: Degenerative arthritis of left knee Condition at Discharge: Improved RACHEL HENRIQUEZ has been given the following list of follow-up instructions, prescriptions, and patient education materials: PATIENT FOLLOW-UP INFORMATION Diet: Discharge Activity: Discharge Restrictions: Wound Care Instructions: Remove Your Dressing In Days Call Your Doctor For: IF UNABLE TO CONTACT YOUR PHYSICIAN AND YOU FEEL IT IS AN EMERGENCY, GO TO THE NEAREST EMERGENCY ROOM OR CALL 911 Home Treatment: Devices/Equipment: Special Services: Additional Instructions: Primary Care Physician to provide the following pending test results: None Follow up: With: Address: When: [place] [address] [facility] () 11/21/2023 10:00 AM With: Address: When: JOHNNIE MULLER [address] [place] [id number] Business (1) In the event that this physician does not participate in your insurance network, please consult with your insurance company to find a nearby participating provider. Comment: MARIAA Galindo JAMES A, have received the attached patient education materials/instruction s and have verbalized understanding: Patient Signature Date Clinican/Nurse Signature Date HERE ARE THE MEDICATION CHANGES THAT OCCURRED DURING YOUR HOSPITAL STAY Medications to Continue with No Changes [facility], [address] [place] [id number], [phone] acetaminophen-oxycodo ne (Percocet 5 mg-325 mg oral tablet) 1-2 tab(s) Oral q4hr. Refills: 0. Last Dose: ____Next Dose: ____ aspirin (aspirin 81 mg Oral EC Tab) 2 Tablets By Mouth every day for 30 Days. Refills: 0. Last Dose: ____Next Dose: ____ celecoxib (CeleBREX 100 mg Cap) 1 Capsules By Mouth 2 times a day as needed for pain. Refills: 2. Last Dose: ____Next Dose: ____ cephalexin (Keflex 500 mg Cap) 1 Capsules By Mouth every 8 hours for 7 Days. Refills: 0. Last Dose: ____Next Dose: ____ docusate (Colace 100 mg Cap) 1 Capsules By Mouth 2 times a day as needed for constipation. Refills: 0. Last Dose: ____Next Dose: ____ Other Medications ascorbic acid (Vitamin C) 1,000 Milligram By Mouth every day. Last Dose: ____Next Dose: ____ ergocalciferol (Vitamin D) By Mouth every day. Last Dose: ____Next Dose: ____ garlic every day. Last Dose: ____Next Dose: ____ levothyroxine (levothyroxine 25 mcg (0.025 mg) Tab) 1 Tablets By Mouth every day. Last Dose: ____Next Dose: ____ multivitamin By Mouth every day. Last Dose: ____Next Dose: ____ phenobarbital (phenobarbital 30 mg oral tablet) 1 Tablets By Mouth 3 times a day., 32.4mg Last Dose: ____Next Dose: ____ phenytoin (Dilantin 100 mg oral capsule, extended release) 1 Capsules By Mouth 3 times a day. Last Dose: ____Next Dose: ____ phenytoin (phenytoin 50 mg Chew Tab) 1 Tablets By Mouth at bedtime. Last Dose: ____Next Dose: ____ simvastatin (simvastatin 80 mg Tab) 1 Tablets By Mouth once a day (at bedtime). Last Dose: ____Next Dose: ____ Comment: MEDICATION LIST PROVIDED FOR YOU IS A LIST OF YOUR CURRENT MEDICATIONS. PLEASE CARRY THIS WITH YOU AT ALL TIMES. acetaminophen-oxycodo ne (Percocet 5 mg-325 mg oral tablet) 1-2 tab(s) Oral q4hr. Refills: 0. ascorbic acid (Vitamin C) 1,000 Milligram By Mouth every day. aspirin (aspirin 81 mg Oral EC Tab) 2 Tablets By Mouth every day for 30 Days. Refills: 0. celecoxib (CeleBREX 100 mg Cap) 1 Capsules By Mouth 2 times a day as needed for pain. Refills: 2. cephalexin (Keflex 500 mg Cap) 1 Capsules By Mouth every 8 hours for 7 Days. Refills: 0. docusate (Colace 100 mg Cap) 1 Capsules By Mouth 2 times a day as needed for constipation. Refills: 0. ergocalciferol (Vitamin D) By Mouth every day. garlic every day. levothyroxine (levothyroxine 25 mcg (0.025 mg) Tab) 1 Tablets By Mouth every day. multivitamin By Mouth every day. phenobarbital (phenobarbital 30 mg oral tablet) 1 Tablets By Mouth 3 times a day. phenytoin (Dilantin 100 mg oral capsule, extended release) 1 Ca (more content not included)... Normal [facility] Interdisciplinary Note - Robinson n 11-07-2023 Interdisciplinary Note - OT OT AM-PAC six clicks score: 22/24=home with ortho 360. Pt completes ADL functional transfers CGA using FWW and full body dressing setup A, CGA for donning shoes. DME discussed and AE for pain management. Plan is for Pt to DC this date with ortho 360. Normal [facility] IntraOperative Documentson 1 01-08-2023 IntraOperative Documents [id number]# 1.00TIFF Normal [facility] Lyteson 11-07-2023 Anion gap [Moles/Vol] 11 mmol/L Normal 6-16 [facility] Comment on above: Order Comment: The s pecimen for this test has been found unacceptable due to hemolysis as determined by SW.Erica Sultana and Sarah were contacted and the following determination was made to redraw the patient. Performed By: #### 2 [id number], [id number] ####[facility] [address] [place] [address] Chloride [Moles/Vol] 107 mmol/L Normal 101-111 [facility] Comment on above: Order Comment: The s pecimen for this test has been found unacceptable due to hemolysis as determined by SW.Vonda Sultana were contacted and the following determination was made to redraw the patient. Performed By: #### 2 [id number], [id number], [id number], [id number] ####[facility] [address] [place] [address] CO2 [Moles/Vol] 26 mmol/L Normal 21-31 [facility] Comment on above: Order Comment: The s pecimen for this test has been found unacceptable due to hemolysis as determined by SW.Vonda Sultana were contacted and the following determination was made to redraw the patient. Performed By: #### 2 [id number], [id number], [id number], [id number], [id number], [id number] ####[facility] [address] [place] [address] Potassium [Moles/Vol] 4.0 mmol/L Normal 3.5-5.3 [facility] Comment on above: Order Comment: The s pecimen for this test has been found unacceptable due to hemolysis as determined by SW.Vonda Sultana were contacted and the following determination was made to redraw the patient. Performed By: #### 2 [id number], [id number], [id number], [id number], [id number], [id number] ####[facility] [address] [place] [address] Sodium [Moles/Vol] 140 mmol/L Normal 135-145 [facility] Comment on above: Order Comment: The s pecimen for this test has been found unacceptable due to hemolysis as determined by SW.Erica Sultana and Sarah were contacted and the following determination was made to redraw the patient. Performed By: #### 2 [id number], [id number], [id number], [id number] [id number], [id number] ####[facility] [address] [place] [address] Main OR Intraoperative Recor don 11-07-2023 Main OR Intraoperative Record IntraOp Document Type FT Summary Primary Physician: Pipe Chou DO Finalized Date/Time: 11/07/23 17:14:03 Pt. Name: RACHEL HENRIQUEZ/Sex: 1960 Male Med Rec #: [id number] Physician: Pipe Chou DO Financial #: [id number] Pt. Type: A Room/Bed: [place] [address] Admit/Disch: 11/06/23 08:37:27 - 11/07/23 10:41:40 Institution: Case Times FT Entry 1 Patient Times In Room 11/06/23 11:16:00 Out Room 11/06/23 13:25:00 Procedure Times Start 11/06/23 12:04:00 Stop 11/06/23 13:18:00 Anesthesia Times Start 11/06/23 11:16:00 Stop 11/06/23 13:25:00 Block Timeout w/ 11/06/23 10:39:00 Anesthesia Last Modified By: Pelon SCOTT, Darline Casiano 11/06/23 13:25:28 General Comments: block by Dr Shepherd, assisted by Jazmine Crawford, TYLER. no complications. spo2 99% on room air, heart rate 79. patient taken back to [facility] via patient cart with side rails up, transported by Jazmine Crawford RN. handoff report given to [facility] nurse, monitoring of patient vitals resumed. tyler duvall 11/07/23 chart opened for charge review per Kelly Billingsley RN. [place] Case Attendance FT Entry 1 Entry 2 Entry 3 Case Attendee Omkar DUMONT, HOME MORTGAGE DISCLOSURE ACT SPECIALIST, [facility], Pipe Schulz, Vince Carbajal Role Performed HOME MORTGAGE DISCLOSURE ACT SPECIALIST Surgeon - Primary PROCESS IMPROVEMENT CONSULTANT/SA Time In 11/06/23 11:16:00 11/06/23 11:55:00 11/06/23 11:50:00 Time Out 11/06/23 13:25:00 11/06/23 13:08:00 11/06/23 13:25:00 Procedure KNEE TOTAL ROBOT KNEE TOTAL ROBOT KNEE TOTAL ROBOT ARTHROPLASTY(Left) ARTHROPLASTY(Left) ARTHROPLASTY(Left) Comments dr yina chun Last Modified By: Pelon RN, Darline Bird RN, Darline Bird RN, Darline Casiano 11/06/23 13:25:29 11/06/23 13:25:29 11/06/23 13:25:29 Entry 4 Entry 5 Entry 6 Case Attendee Pelon SCOTT, Su Harrison PROCESS IMPROVEMENT CONSULTANT, Addie Jay Role Performed Business Director - Primary Scrub - Primary Staff - Other Time In 11/06/23 11:16:00 11/06/23 11:16:00 11/06/23 11:16:00 Time Out 11/06/23 13:25:00 11/06/23 13:25:00 11/06/23 13:00:00 Procedure KNEE TOTAL ROBOT KNEE TOTAL ROBOT KNEE TOTAL ROBOT ARTHROPLASTY(Left) ARTHROPLASTY(Left) ARTHROPLASTY(Left) Comments 2nd scrub Last Modified By: Pelon RN, Darline Bird RN, Darline Bird RN, Darline Casiano 11/06/23 13:25:29 11/06/23 13:25:29 11/06/23 13:25:29 Perioperative Protocols FT Pre-Care Text: Implements protective measures prior to operative or invasive procedure, confirms identity before the operative or invasive procedure, verifies operative procedure, surgical site, and laterality Entry 1 Procedure(s) KNEE TOTAL ROBOT Patient Identity Birthday, Blood Band, ARTHROPLASTY(Left) Verified (select at ID Band Check, Patient least 2): Participation Consents / H and P Anesthesia Consent, Operative Site Present Verified HandP, Surgery/Procedure Marking Verified Consent, Transfusion Consent Surgical Site Yes Laterality Verified Yes Verified Procedure Verified Yes Correct Patient Yes Position Verified Availability Equipment, Implant, Prep Dry n/a Verified (If Medication, X-ray Applicable) PreOp Antibiotic Yes Time Out Omkar DUMONT, HENRI, Queen Latha Carbajal, Piep Chou DO, Vince Schulz, Pelon SCOTT, Darline Casiano, Su Obregon, Pascual BEARD, Addie Jay Time Out Complete 11/06/23 12:03:00 Outcomes Met? Yes Last Modified By: Darline Bird RN 11/06/23 12:28:16 Post-Care Text: The patient is free from signs and symptoms of injury caused by extraneous objects Allergy Information FT Pre-Care Text: Verifies allergies Entry 1 Allergies Reviewed? Yes Allergies Reviewed Self/Patient With Outcomes Met? Yes Last Modified By: Darline Bird RN 11/06/23 08:37:55 Post-Care Text: The patient received appropriate medication(s) safely administered during the perioperative period Surgical Procedures FT Entry 1 Procedure Description Procedure KNEE TOTAL ROBOT Modifiers Left ARTHROPLASTY Surgeon Description ROBOTIC ASSISTED LEFT TOTAL KNEE ARTHROPLASTY Primary Procedure Yes Primary Surgeon Pipe Chou DO Start 11/06/23 12:04:00 Stop 11/06/23 13:18:00 Anesthesia Type General Surgical Service Orthopedics Wound Class 1 - Clean Last Modified By: Jose Cruz SCOTT, BSN, Daylin 11/07/23 17:12:22 General Case Data FT Pre-Care Text: Classifies surgical wound, implements aseptic technique, initiates traffic control Entry 1 Case Information OR OR 7 FT Case Level Level 6 Wound Class 1 - Clean Specialty Orthopedics ASA Class 2 Preop Diagnosis OSTEOARTHRITIS LEFT KNEE Postop Same As Preop Yes Postop Diagnosis OSTEOARTHRITIS LEFT KNEE Outcomes Met? Yes Last Modified By: Darline Bird RN 11/06/23 12:31:59 Post-Care Text: The patient is free from signs and symptoms of infection Skin Assessment (Pre Procedure) FT Pre-Care Text: Implements protective measures to prevent skin/ tissue injury due to thermal or mechanical sources Evaluates for signs and symptoms of physical injury to skin and tissue Entry 1 Skin Integrity Intact, [place], Warm, and Skin Abnormality No (more content not included)... Normal [facility] Preoperative Documentson Preoperative Documents [id number]# 1.00TIFF Normal [facility] Progress Note-Physicianon Progress Note-Physician Patient: RACHEL HENRIQUEZ Age: 63 years Sex: Male : 1960 Associated Diagnoses: None Author: Pipe Chou DO POD 1 s/p L TKA difficulty voiding yesterday, chairez placed yesterday and removed this morning. pain controlled. no CP/SOB, nick po L LE: dressings dry, ankle PF/DF intact, neg homans, brisk cap refill WBC 8.4 Hgb 12.2 Hct 36 Plt 178 post op xrays reviewed yesterday. prosthesis in satisfactory position Plan: - D/C home Objective Vital Signs 11/07/2023 4:30 EST Temperature Oral 37.1 DegC Heart Rate Monitored 88 bpm Systolic Blood Pressure 126 mmHg Diastolic Blood Pressure 70 mmHg SpO2 96 % Normal [facility] Comment on above: Result Comment: Elec tronically Signed By: Pipe Chou DO\.br\Date and Time Signed: 11/07/23 07:17 EST eGFRon 11-07-2023 GFR/1.73 sq M.predicted among non-blacks MDRD (S/P/Bld) [Vol rate/Area] 104 mL/min/1.73 m2 Normal >=59 [facility] Comment on above: Order Comment: Order added by Discern Expert. Result Comment: Brazer Resistance daniel kidney disease could be indicated at eGFR's of less than 60 mL/min/1.73m2. Kidney failure is indicated at less than 15 mL/min/1.73m2. Performed By: #### 2 [id number], [id number], [id number], 8209188, 5367938, [id number] ####[facility] [address] [place] [address] ABO/Rhon 11-06-2023 ABO/Rh Positive Invalid Interpretation Code [facility] Comment on above: Performed By: #### 1 [id number], [id number], [id number], [id number] ####[facility] [address] [place] [address] ABO/Rh History Checkon 11-06 ABO/Rh History Check Verified Hx Blood Type Normal [facility] Comment on above: Performed By: #### 1 [id number], [id number], [id number], [id number] ####[facility] [address] [place] [address] ABSCon 11-06-2023 ABSC Gel Interp Negative Normal [facility] Comment on above: Performed By: #### 1 [id number], [id number], [id number], [id number] ####[facility] [address] [place] [address] BLOOD BANKOrdered By: Elton Madsen on 11-06-2023 ABO/Rh Interp Positive Invalid Interpretation Code [facility] BB Subsection ABSC Gel Interp Negative (11/06/23 9:15 AM) Normal [facility] BB Subsection Blood Bank ID#on 11-06-2023 BBID# [id number] Invalid Interpretation Code [facility] Comment on above: Performed By: #### 1 [id number], [id number], [id number], [id number] ####[facility] [address] [place] [address] Consent for Treatmenton Consent for Treatment [id number]#1 .00TIFF Normal [facility] H&P Updateon 11-06-2023 H&P Update [id number]# 1.00TIFF Normal [facility] Insurance Correspondence Off iceon 11-06-2023 Insurance Correspondence Office [id number]# 1.00TIFF Normal [facility] Main OR PACU I Recordon Main OR PACU I Record PACU Phase I Docum ent Type FT Summary Primary Physician: Piep Chou DO Finalized Date/Time: 11/06/23 14:54:40 Pt. Name: RACHEL HENRIQUEZ/Sex: 1960 Male Med Rec #: [id number] Physician: Pipe Chou DO Financial #: [id number] Pt. Type: A Room/Bed: [facility] Admit/Disch: 11/06/23 08:37:27 - Institution: Case Times PACU I FT Pre-Care Text: Identifies barriers to communication and implements measures to provide psychological support Develops individualized plan of care, and ensures continuity of care Maintains patient's dignity and privacy, and maintains patient confidentiality Identifies and reports philosophical, cultural, and spiritual beliefs and values Identifies individual values and wishes concerning care Implements aseptic technique, and administers prescribed antibiotic therapy and immunizing agents as ordered Evaluates postoperative tissue perfusion Implements thermoregulation measures, and monitors body temperature Evaluates postoperative respiratory status Evaluates postoperative cardiac status Evaluates postoperative neurological status Assesses pain control, collaborated in initiating patient-controlled analgesia and implements alternative methods of pain control Verifies allergies, administers prescribed medications and solutions, evaluates response to medications Entry 1 In PACU I 11/06/23 13:27:00 Discharge from PACU 11/06/23 14:33:00 I Outcomes Met? Yes Last Modified By: Misty Jacobs RN 11/06/23 14:54:26 Post-Care Text: The patient demonstrates knowledge of the expected response to the operative or invasive procedure The patient's care is consistent with the individualized perioperative plan of care The patient's right to privacy is maintained The patient's value system, lifestyle, ethnicity, and culture are considered, respected, and incorporated into the perioperative plan of care The patient participates in decisions affecting his or her perioperative plan of care The patient is free from signs and symptoms of infection The patient has wound/tissue perfusion consistent with or improved from baseline levels established preoperatively The patient is at or returning to normothermia at the conclusion of the immediate postoperative period The patient's respiratory function is consistent with or improved from baseline levels established preoperatively The patient's cardiovascular status is consistent with or improved from baseline levels established preoperatively The patient's cardiovascular status is consistent with or improved from baseline levels established preoperatively The patient demonstrates and/or reports adequate pain control throughout the perioperative period The patient received appropriate medication(s), safely administered during the perioperative period Acuity Level PACU I FT Entry 1 Start Time 11/06/23 13:27:00 Stop Time 11/06/23 14:33:00 Acuity Level Acuity Level I Last Modified By: Misty Jacobs RN 11/06/23 14:54:37 Finalized By: Misty Jacobs RN Document Signatures Signed By: Misty Jacobs RN 11/06/23 14:54 Normal [facility] Main OR Preoperative Recordo n 11-06-2023 Main OR Preoperative Record PreOp Document Type FT Summary Primary Physician: Pipe Chou DO Finalized Date/Time: 11/06/23 12:33:55 Pt. Name: MARIAA RACHEL Jay D.O.B./Sex: 1960 Male Med Rec #: [id number] Physician: Pipe Chou DO Financial #: [id number] Pt. Type: A Room/Bed: 05/02 Admit/Disch: 11/06/23 08:37:27 - Institution: Case Times PreOp FT Pre-Care Text: Verifies consent for planned procedure, identifies individual values and wishes concerning care, includes family members in perioperative teaching Entry 1 Patient Times. In Pre Surgery 11/06/23 08:40:00 Out Pre Surgery 11/06/23 11:14:00 Outcomes Met? Yes Last Modified By: Darline Bird RN 11/06/23 12:33:53 Post-Care Text: The patient participates in decisions affecting his or her perioperative plan of care Finalized By: Darline Bird RN Document Signatures Signed By: Darline Bird RN 11/06/23 12:33 Normal [facility] Monitor Recordon 11-06-2023 Monitor Record [id number]# 1.00TIFF Normal [facility] Monitor Record [id number]# 1.00TIFF Normal [facility] Operative Reporton Operative Report Patient: HAYDE HENRIQUEZ Age: 63 years Sex: Male : 1960 Associated Diagnoses: None Author: Pipe Chou DO DATE OF SURGERY: 11/06/2023 SURGEON: Pipe Chou D.O. RUBY DEVELOPER: Vince Jazz, PAYROLL TECHNICIAN PREOPERATIVE DIAGNOSIS: Advanced degenerative osteoarthrosis, left knee POSTOPERATIVE DIAGNOSIS: Advanced degenerative osteoarthrosis, left knee OPERATION: Left total knee arthroplasty utilizing AffinityClick robotic arm assistance ANESTHESIA: Spinal + regional block DIRECTOR OF MAINTENANCE: Queen Omkar CRNA and Cruzito Shepherd DO IMPLANTS USED: Paresh Triathlon Total Knee System 1. size 6 cruciate retaining cementless femur 2. Size 10 mm X3 CS polyethylene 3. Size 6 Tritanium cementless tibial baseplate 4. Size 35 mm asymmetric Tritanium cementless patella OPERATIVE INDICATIONS: Rachel is a 63-year-old male who has had persistent left knee pain despite numerous conservative measures. His pain interferes with his activities of daily living, ability to sleep at night, and quality of life. He has a history of left TKA performed in 2015 by another surgeon and is currently doing well with the left knee. He agreed to proceed with the above procedure after a discussion of the risks, benefits, complications, alternatives, and expectations. Please see office notes for further details. The patient's surgery was preplanned utilizing CT scan and Watertronix software. This included the planned implant sizes and positions, bone resection, and ligament balancing. Modifications to the plan were made intraoperatively as appropriate. PROCEDURE: The correct operative site was identified and marked in the preoperative holding area. The patient was administered intravenous antibiotics in accordance with SCIP Protocol. He was also given a gram of tranexamic acid intravenously about 15 minutes prior to incision. He was transported to the Regional Anesthetic Block Room and administered a regional anesthetic nerve block by the anesthesiologist. I requested the nerve block to assist with intraoperative and postoperative pain control. He was transported to the Operating Room and administered a spinal anesthetic. He was placed supine and a well padded tourniquet was applied to the operative upper thigh. The left upper extremity was secured across the patient's torso. The operative lower extremity was then prepped and draped in the usual sterile fashion. The foot was placed into a padded suarez and secured in the Paresh knee positioner. Surgical time-out was performed with all required personnel present. The limb was exsanguinated with an Esmarch and the tourniquet was inflated to 300 mmHg. A longitudinal incision over the anterior knee was made. Medial and lateral skin flaps were developed. Dissection was carried down through the subcutaneous layers. Medial parapatellar arthrotomy was performed and normal appearing joint fluid was encountered and suctioned. Irrisept solution was poured into the joint. The intermeniscal ligament was then cut and soft tissue at the medial tibial plateau was peeled off of the bone with Bovie electrocautery. The ACL was transected at its tibial attachment. The fat pad was sharply excised and the patella was everted. Tourniquet was deflated at 7 minutes and areas of active bleeding were cauterized with the AquaMantys and Bovie. The tibial pins for the tibial array were placed along the proximal medial tibia distal to the knee incision through 2 stab incisions. The tibial array was placed onto the pins and secured. The distal femoral pins for the femoral array were placed in the medial femoral condyle. The femoral array was affixed to the pins. The registration device was then placed into the distal femur just distal to the array pins along the medial femoral condyle. The tibial registration device was placed along the medial tibia distal to the planned resection level. The hip center, medial and lateral malleoli were registered. Registration points along the distal femur and proximal tibia were captured. Osteophytes along the distal femur and proximal tibia were removed with a rongeur. Range of motion of the knee was then assessed with the computer. The patient had 2 degree flexion contracture and 10 degrees of varus. Preliminary ligament balancing was performed with the tensioning spoons in both flexion and extension and these values were captured by the computer. Adjustments to the planned resection were made to balance the ligaments. The self-retaining medial and lateral retractors were then placed and secured to the leg suarez. Bone resection was then performed with computer guidance using the saw attached to the Watertronix robotic arm. Femoral cuts were made including anterior, posterior, and chamfer cuts. The tibial cut was then made in the same fashion. The resected bone fragments were removed with osteotomes and freed from tissue with the bovie. Lamina precision farming coordinator was placed int (more content not included)... Normal [facility] Comment on above: Result Comment: Elec tronically Signed By: Pipe Chou DO\.br\Date and Time Signed: 11/06/23 16:06 EST Proceduralon 11-06-2023 Procedural Patient: HAYDE HENRIQUEZ Age: 63 years Sex: Male : 1960 Associated Diagnoses: None Author: Omkar DUMONT CRNA, Queen Raven Procedure Nerve Block Block Type: Adductor canal block. Laterality: Left. Informed consent for anesthesia management: Anesthesia options discussed including nerve block, Description of the procedure, risks, benefits, and alternatives was provided, The patient's questions were addressed. Time out: Confirmed correct patient, procedure and site. Time: Date/Time 11/06/2023 10:44:00. Indication: Block for postoperative pain management as requested by surgeon. Anesthesia Method: IV Sedation with monitored anesthesia care, The patient remained awake and able to interact in a meaningful way throughout the procedure. Preparation: The patient was placed in the following position Supine, Continuous pulse oximetry applied, Using maximal sterile barrier technique per current [facility] guidelines including hand hygeine, Guidance (Ultrasound used to identify anatomical landmarks, Using sterile gel and probe covers, Permanent image retained), The site was prepped with ChloraPrep. Procedure: Anesthetic Agent 20cc of 0.5% Ropivicaine with 4mg PF decadron, Catheter size (21 guage, Sonoplex needle), Needle was inserted without pain or parasthesia in the conscious patient, Number of attempts 1, Negative attempt at aspiration for blood, Medial and lateral spread of the anesthestic was observed, Periodic negative attempts at aspiration of blood were made as the local was injected, No pain or parathesia were elicited with injection of the anesthetic in the conscious patient, It was idetified that the correct anesthetic agent was administered to the correct site. Complications: The patient tolerated the procedure as expected, Procedure completed by Queen Omkar CRNA under supervision of Dr Shepherd. [facility] Progress Note-Physicianon Progress Note-Physician Patient: RACHEL HENRIQUEZ Age: 63 years Sex: Male : 1960 Associated Diagnoses: None Author: Yao Shepherd DO Postoperative Information Postoperative disposition: Postoperative disposition: To PACU. Anesthetic utilized: Regional: Spinal. Health Status Allergies: Allergic Reactions (Selected) No Known Allergies Current medications: (Selected) Inpatient Medications Ordered Colace 100 mg Cap: 100 mg = 1 cap(s), Cap, Oral, BID, Routine, Start date 11/06/23 21:00:00 EST, 11/06/23 11:44:00 EST Dilantin 100 mg Cap-ER: 100 mg = 1 cap(s), Cap-ER, Oral, TID, Routine, Start date 11/06/23 14:00:00 EST Dulcolax 5 mg Tab-EC: 10 mg = 2 tab(s), Tab-EC, Oral, Daily PRN Constipation, Routine, Start date 11/08/23 11:44:00 EST, 11/08/23 11:44:00 EST HYDROmorphone 1 mg/mL injectable solution: 1 mg = 1 mL, Injection, IV Push, q4hr PRN Pain 8-10 for 5 day(s), Stop date 11/11/23 11:43:00 EST, Routine, Start date 11/06/23 11:44:00 EST, 11/06/23 11:44:00 EST Lactated Ringers IV Claribel 1000 mL 1,000 mL: 1,000 mL, IV, 150 mL/hr, Routine, Start date 11/06/23 9:15:00 EST, 6.7 hour(s), Total volume (mL): 1,000, 97.2 kg, 2.22, m2 Lactated Ringers IV Claribel 1000 mL 1,000 mL: 1,000 mL, IV, 80 mL/hr, Routine, Start date 11/06/23 11:44:00 EST, 12.5 hour(s), Total volume (mL): 1,000, 97.2 kg, 2.22, m2 Lovenox 40 mg/0.4 mL SC Claribel: 40 mg = 0.4 mL, Injection, SubCutaneous, Daily for 10 day(s), Stop date 11/17/23 8:59:00 EST, Routine, Start date 11/07/23 9:00:00 EST, Start in AM postop day 1, 11/07/23 9:00:00 EST Milk of Magnesia 8% Susp-Oral: 30 mL, Susp-Oral, Oral, BID PRN Constipation, Routine, Start date 11/06/23 11:44:00 EST Nozin 62% Bottle - POSTOP: 6 drop(s), Soln-Nasal, Nasal, BID, Routine, Start date 11/06/23 21:00:00 EST PHENobarbital 15 mg Tab: 30 mg = 2 tab(s), Tab, Oral, TID, Routine, Start date 11/06/23 14:00:00 EST Pantoprazole [address] Tab: 40 mg = 1 tab(s), Tab-DR, Oral, Daily, Routine, Start date 11/07/23 9:00:00 EST, 11/06/23 11:44:00 EST Vitamin C 500 mg Tab: 500 mg = 1 tab(s), Tab, Oral, BIDWM, Routine, Start date 11/06/23 17:00:00 EST, 11/06/23 11:44:00 EST Zofran 4 mg/2 mL Injection: 4 mg = 2 mL, Injection, IV Push, q6hr PRN Nausea/Vomiting, Routine, Start date 11/06/23 11:44:00 EST, 11/06/23 11:44:00 EST cefazolin additive + Sodium Chloride 0.9% intravenous solution 50 mL: 2 gram = 1 EA, IV Piggyback, q8hr for 2 dose(s), Stop date 11/07/23 3:59:00 EST, Routine, Start date 11/06/23 12:00:00 EST, 100 mL/hr, Infuse over 30 minute(s), 11/06/23 11:44:00 EST dexamethasone 4 mg/mL Inj 1 mL: 4 mg = 1 mL, Injection, IV Push, Once, Stop date 11/06/23 18:00:00 EST, Routine, Start date 11/06/23 18:00:00 EST, 11/06/23 18:00:00 EST ferrous sulfate 325 mg Tab: 325 mg = 1 tab(s), Tab, Oral, BIDWM, Routine, Start date 11/06/23 17:00:00 EST, 11/06/23 11:44:00 EST levothyroxine 25 mcg (0.025 mg) Tab: 25 mcg = 1 tab(s), Tab, Oral, Daily, Routine, Start date 11/07/23 6:30:00 EST oxyCODONE 5 mg Tab: 10 mg = 2 tab(s), Tab, Oral, q4hr PRN Pain 8-10 for 5 day(s), Stop date 11/11/23 11:43:00 EST, Routine, Start date 11/06/23 11:44:00 EST, 11/06/23 11:44:00 EST oxyCODONE 5 mg Tab: 5 mg = 1 tab(s), Tab, Oral, q4hr PRN Pain 8-10 for 5 day(s), Stop date 11/11/23 11:43:00 EST, Routine, Start date 11/06/23 11:44:00 EST, 11/06/23 11:44:00 EST phenytoin 50 mg Chew Tab: 50 mg = 1 tab(s), Tab-Chew, Oral, Bedtime, Routine, Start date 11/06/23 22:00:00 EST simvastatin 40 mg Tab: 80 mg = 2 tab(s), Tab, Oral, Once a day (at bedtime), Routine, Start date 11/06/23 21:00:00 EST tranexamic acid 100 mg/mL intravenous solution: 2,000 mg = 20 mL, Injection, Misc, Once, Stop date 11/06/23 12:30:00 EST, Routine, Start date 11/06/23 12:30:00 EST, To be given to the field for injection into the operative site during the procedure. Prescriptions Prescribed CeleBREX 100 mg Cap: 100 mg = 1 cap(s), Oral, BID, PRN for pain, # 60 cap(s), Refills(s) 2, Pharmacy: [id number], 183, cm, 10/22/23 12:24:00 EST, Height/Length Dosing, 97.2, kg, 10/22/23 12:24:00 EST, Weight Dosing Colace 100 mg Cap: 100 mg = 1 cap(s), Oral, BID, PRN for constipation, # 20 cap(s), Refills(s) 0, Pharmacy: [facility], 183, cm, 10/22/23 12:24:00 EST, Height/Length Dosing, 97.2, kg, 10/22/23 12:24:00 EST, Weight Dosing Keflex 500 mg Cap: 500 mg = 1 cap(s), Oral, q8hr, X 7 day(s), # 21 cap(s), Refills(s) 0, Pharmacy: [facility], 183, cm, 10/22/23 12:24:00 EST, Height/Length Dosing, 97.2, kg, 10/22/23 12:24:00 EST, Weight Dosing Percocet 5 mg-325 mg oral tablet: See Instructions, 40 tab(s), Refill(s) 0, 1-2 tab(s) Oral q4hr, [facility], 183, cm, 10/22/23 12:24:00 EST, Height/Length Dosing, 97.2, kg, 10/22/23 12:24:00 EST, Weight Dosing aspirin 81 mg Oral EC Tab: 162 mg = 2 tab(s), Oral, Daily, X 30 day(s), # 60 tab(s), Refills(s) 0, Pharmacy: [facility], 183, cm, 10/22/23 12:24:00 EST, Height/Length Dosing, 97.2, (more content not included)... Normal [facility] Comment on above: Result Comment: Elec tronically Signed By: Yao Shepherd DO\.br\Date and Time Signed: 11/06/23 14:56 EST Progress Note-Physician Patient: RACHEL HENRIQUEZ Age: 63 years Sex: Male : 1960 Associated Diagnoses: None Author: Yao Shepherd DO Preoperative Information Anesthesia history: Patient history: None. Family history+: None. Anesthesia results Informed consent: Signed by patient. Including risks, benefits, and alternatives related to the: Anesthetic plan, Postoperative pain management plan. Re-evaluation prior to induction: Yao Shepherd DO. Health Status Allergies: Allergic Reactions (Selected) No Known Allergies, Allergies (1) Active Reaction No Known Allergies None Documented Current medications: (Selected) Inpatient Medications Ordered Lactated Ringers IV Claribel 1000 mL 1,000 mL: 1,000 mL, IV, 150 mL/hr, Routine, Start date 11/06/23 9:15:00 EST, 6.7 hour(s), Total volume (mL): 1,000, 97.2 kg, 2.22, m2 cefazolin additive + Sodium Chloride 0.9% intravenous solution 50 mL: 2 gram = 1 EA, Powder-Inj, IV Piggyback, PREOP, Routine, Start date 11/06/23 9:15:00 EST, 100 mL/hr, Infuse over 30 minute(s) tranexamic acid additive + premix generic diluent 100 mL: 1,000 mg = 100 mL, Soln-IV, IV Piggyback, Once, Stop date 11/06/23 10:00:00 EST, Routine, Start date 11/06/23 10:00:00 EST, 200 mL/hr, Infuse over 30 minute(s) Documented Medications Documented Dilantin 100 mg oral capsule, extended release: 100 mg = 1 cap(s), Oral, TID, Refills(s) 0, Seizure Vitamin C: 1,000 mg, Oral, Daily, Refills(s) 0, Prophylaxis Vitamin D: Oral, Daily, Refills(s) 0, Prophylaxis garlic: Daily, Refill(s) 0, Prophylaxis levothyroxine 25 mcg (0.025 mg) Tab: 25 mcg = 1 tab(s), Oral, Daily, Refills(s) 0, Thyroid multivitamin: Oral, Daily, Refill(s) 0, Prophylaxis phenobarbital 30 mg oral tablet: = 1 tab(s), Oral, TID, Refills(s) 0, Seizure phenytoin 50 mg Chew Tab: 50 mg = 1 tab(s), Oral, Bedtime, Refills(s) 0, Seizure simvastatin 80 mg Tab: 80 mg = 1 tab(s), Oral, Once a day (at bedtime), Refills(s) 0, High cholesterol, Home Medications (9) Active Dilantin 100 mg oral capsule, extended release 100 mg = 1 cap(s), Oral, TID garlic , Daily levothyroxine 25 mcg (0.025 mg) Tab 25 mcg = 1 tab(s), Oral, Daily multivitamin , Oral, Daily phenobarbital 30 mg oral tablet 1 tab(s), Oral, TID phenytoin 50 mg Chew Tab 50 mg = 1 tab(s), Oral, Bedtime simvastatin 80 mg Tab 80 mg = 1 tab(s), Oral, Once a day (at bedtime) Vitamin C 1,000 mg, Oral, Daily Vitamin D , Oral, Daily , Medications (3) Active Scheduled: (2) ceFAZolin + Sodium Chloride 0.9% Minibag 50 mL 2 gram 1 EA, IV Piggyback, PREOP tranexamic acid + Generic Diluent 100 mL 1,000 mg 100 mL, IV Piggyback, Once Continuous: (1) Lactated Ringers 1,000 mL 1,000 mL, IV, 150 mL/hr PRN: (0) Problem list: All Problems Abdominal pain / SNOMED CT 02610144 / Confirmed Angiomyolipoma / SNOMED CT 138453974 / Confirmed BPH with urinary obstruction / SNOMED CT 7299299602 / Confirmed History of colon polyps / SNOMED CT 8899886135 / Confirmed hypercholesterol / SNOMED CT 34082016 / Confirmed Hypertension / SNOMED CT 44036273 / Confirmed Hypertension / SNOMED CT 80451851 / Confirmed Obstructive sleep apnea / SNOMED CT 945828330 / Confirmed 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 Renal mass / SNOMED CT 409009598 / Confirmed Resolved: chronic lower back pain / SNOMED CT 4828674039 Resolved: Diverticular disease / SNOMED CT 1247586234 Resolved: Gastritis / SNOMED CT 9601585 Resolved: Hyperlipidemia / SNOMED CT 21941040 Resolved: Seizure disorder / SNOMED CT 243334768 Resolved: seizures / SNOMED CT 211716375 Canceled: BPH - benign prostatic hyperplasia / SNOMED CT 0495683288, Active Problems (10) Abdominal pain Angiomyolipoma BPH with urinary obstruction History of colon polyps hypercholesterol Hypertension Hypertension Obstructive sleep apnea organic impotence Renal mass Histories Past Medical History: Active Hypertension (77267246) hypercholesterol (49596837) Renal mass (466958375) organic impotence (535127774) Resolved seizures (606082343): Resolved. chronic lower back pain (5352428258): Resolved. Diverticular disease (6480659035): Resolved. Hyperlipidemia (79411291): Resolved. Seizure disorder (716395136): Resolved. Gastritis (5827535): Resolved. Family History: Hypertension Father Cancer Father Procedure history: Colonoscopy ([id number]) on 05/21/2022 at 61 Years. left shoulder surgery. History of knee surgery (1871208980). Social History Social & Psychosocial Habits Alcohol 11/06/2023 Risk Assessment: Denies Alcohol Use 11/06/2023 Use: Current Comment: denies - 09/11/2021 08:38 - Radhika Fuller Substance Abuse 11/06/2023 Risk Assessment: Denies Substance Abuse 11/06/2023 Use: Current Comment: denies - 09/11/2021 08:38 - FullerLulabenji Lopez Tobacco 11/06/2023 Risk Assessment: Denies Tobacco Use 11/06/2023 Tobacco Use: Never (less than 100 in l (more content not included)... Normal [facility] Comment on above: Result Comment: Elec tronically Signed By: Yao Shepherd DO\.br\Date and Time Signed: 11/06/23 10:18 EST UA With Cult Reflexon 2022 Bilirubin Ql (U) Negative Normal Negative [facility] Comment on above: Order Comment: Urina ry Catheter Insertion triggered Urinalysis With Culture Reflex order by discern. Performed By: #### 1 [id number] ####[facility] [address] [place] [address] Clarity (U) CLEAR Normal Clear [facility] Comment on above: Order Comment: Urina ry Catheter Insertion triggered Urinalysis With Culture Reflex order by discern. Performed By: #### 1 [id number] ####[facility] [address] [place] [address] Color (U) YELLOW Normal Yellow [facility] Comment on above: Order Comment: Urina ry Catheter Insertion triggered Urinalysis With Culture Reflex order by discern. Performed By: #### 1 [id number] ####[facility] [address] [place] [address] Epithelial cells.squamous LM.HPF (Urine sed) [#/Area] 0-2 Normal 0-2 [facility] Comment on above: Order Comment: Urina ry Catheter Insertion triggered Urinalysis With Culture Reflex order by discern. Performed By: #### 1 [id number] ####[facility] [address] [place] [address] Glucose Test strip (U) [Mass/Vol] Negative Normal Negative [facility] Comment on above: Order Comment: Urina ry Catheter Insertion triggered Urinalysis With Culture Reflex order by discern. Performed By: #### 1 [id number] ####[facility] [address] [place] [address] Hemoglobin Ql (U) Negative Normal Negative [facility] Comment on above: Order Comment: Urina ry Catheter Insertion triggered Urinalysis With Culture Reflex order by discern. Performed By: #### 1 [id number] ####[address] [address] Ketones (U) [Mass/Vol] Negative Normal Negative [facility] Comment on above: Order Comment: Urina ry Catheter Insertion triggered Urinalysis With Culture Reflex order by discern. Performed By: #### 1 [id number] ####[address] [address] Talpa.plasma/Talpa. RBC (Bld) [Mass ratio] 0-3 Normal 0-3 [facility] Comment on above: Order Comment: Urina ry Catheter Insertion triggered Urinalysis With Culture Reflex order by discern. Performed By: #### 1 [id number] ####[address] [address] Nitrite Ql (U) Negative Normal Negative [facility] Comment on above: Order Comment: Urina ry Catheter Insertion triggered Urinalysis With Culture Reflex order by discern. Performed By: #### 1 [id number] ####[address] [address] pH (U) 7.0 [pH] Invalid Interpretation Code 5.0-9.0 [facility] Comment on above: Order Comment: Urina ry Catheter Insertion triggered Urinalysis With Culture Reflex order by discern. Performed By: #### 1 [id number] ####[address] [address] Protein (U) [Mass/Vol] Negative Normal Negative [facility] Comment on above: Order Comment: Urina ry Catheter Insertion triggered Urinalysis With Culture Reflex order by discern. Performed By: #### 1 [id number] ####[address] [address] Specific gravity (U) [Rel density] 1.010 Invalid Interpretation Code 1.005-1.030 [facility] Comment on above: Order Comment: Urina ry Catheter Insertion triggered Urinalysis With Culture Reflex order by discern. Performed By: #### 1 [id number] ####[place] [address] Type of Urine collection method Catheter Normal [facility] Comment on above: Order Comment: Urina ry Catheter Insertion triggered Urinalysis With Culture Reflex order by discern. Performed By: #### 1 [id number] ####[place] [address] Urobilinogen Qn (U) 0.2 {Annette'U}/dL Normal 0.0-1.0 [facility] Comment on above: Order Comment: Urina ry Catheter Insertion triggered Urinalysis With Culture Reflex order by discern. Performed By: #### 1 [id number] ####[place] [address] WBC Auto Ql (U) Negative Normal Negative [facility] Comment on above: Order Comment: Urina ry Catheter Insertion triggered Urinalysis With Culture Reflex order by discern. Performed By: #### 1 [id number] ####[place] [address] WBC LM.HPF (Urine sed) [#/Area] 0-5 Normal 0-5 [facility] Comment on above: Order Comment: Urina ry Catheter Insertion triggered Urinalysis With Culture Reflex order by discern. Performed By: #### 1 [id number] ####[place] [address] URINALYSISOrdered By: Khris Crews on 11-06-2023 Bilirubin Ql (U) Negative (11/06/23 6:40 PM) Normal Negative [facility] UA Auto SS Clarity (U) Clear (11/06/23 6:40 PM) Normal Clear [facility] UA Auto SS Color (U) Yellow (11/06/23 6:40 PM) Normal Yellow [facility] UA Auto SS Epithelial cells.squamous LM.HPF (Urine sed) [#/Area] 0-2 /HPF Normal 0-2/HPF [facility] UA Aut o SS Glucose Test strip (U) [Mass/Vol] Negative (11/06/23 6:40 PM) Normal Negative [facility] UA Auto SS Hemoglobin Ql (U) Negative (11/06/23 6:40 PM) Normal Negative [facility] UA Auto SS Ketones (U) [Mass/Vol] Negative (11/06/23 6:40 PM) Normal Negative [facility] UA Auto SS Talpa.plasma/Talpa. RBC (Bld) [Mass ratio] 0-3 /HPF Normal 0-3/HPF [facility] UA A uto SS Nitrite Ql (U) Negative (11/06/23 6:40 PM) Normal Negative [facility] UA Auto SS pH (U) 7.0 *NA* (11/06/23 6:40 PM) Invalid Interpretation Code 5.0 - 9.0 [facility] UA Auto SS Protein (U) [Mass/Vol] Negative (11/06/23 6:40 PM) Normal Negative [facility] UA Auto SS Specific gravity (U) [Rel density] 1.010 *NA* (11/06/23 6:40 PM) Invalid Interpretation Code 1.005 - 1.030 [facility] UA Auto SS UA Spec Desc Catheter (11/06/23 6:40 PM) Normal [facility] UA Auto SS Urobilinogen Qn (U) 0.5228421 {Annette'U}/dL Normal 0.0 - 1.0 EU/dL [facility] UA Auto SS WBC Auto Ql (U) Negative (11/06/23 6:40 PM) Normal Negative [facility] UA Auto SS WBC LM.HPF (Urine sed) [#/Area] 0-5 /HPF Normal 0-5/HPF [facility] UA Auto SS XR Knee 1 or 2 Views Lefton 11-06-2023 XR Knee 1 or 2 Views Left Exam Date/Time: 11/06/2023 14:06 EST Reason for Exam: Post-op evaluation;Other (please specify) Report IMPRESSION: Status post complete left knee replacement. EXAMINATION: XR Knee 1 or 2 Views Left, 11/06/2023 1:31 PM CLINICAL HISTORY: Post-op evaluation TECHNIQUE: AP x-ray COMPARISON: Knee x-rays from 09/03/2023 FINDINGS: Status post complete left knee replacement. The prostheses are in anatomic alignment. Expected postoperative soft tissue edema and subcutaneous air are noted. Ordering Provider: Pipe Chou FINAL REPORT Dictated: 11/06/2023 2:49 pm Thien Paiz MD, V. Signed (Electronic Signature): 11/06/2023 2:49 pm Signed by: Thien Paiz MD, V. Transcribed by: JOSE MARIA Technologist: JASMINE Technical Comments Radiation Dose: Ka,r in mGy = na DAP = na [facility] Consent for Procedure/Surger yon 11-04-2023 Consent for Procedure/Surgery [id number]# 1.00TIFF Normal [facility] CT Lower Extremity w/o Contr ast Lefton 10-24-2023 CT Lower Extremity w/o Contrast Left Exam Date/Time: 10/22/2023 11:23 EST Reason for Exam: OSTEOARTHRITIS LEFT KNEE Report IMPRESSION: LEFT KNEE OSTEOARTHRITIS. EXAMINATION: CT Lower Extremity w/o Contrast Left HISTORY: Left knee osteoarthritis TECHNIQUE: Multiple contiguous axial images were obtained of the left lower extremity utilizing Omega protocol. Multiplanar reformats were obtained. COMPARISON: None available FINDINGS: Degenerative changes including joint space narrowing, tiny subcortical cyst formation, and marginal osteophyte formation of the left knee. Small knee joint effusion. No acute fracture. Visualized myotendinous structures appear intact. All CT scans at this facility use dose modulation, iterative reconstruction, and/or weight based dosing when appropriate to reduce radiation dose to as low as reasonably achievable. Ordering Provider: Pipe Chou FINAL REPORT Dictated: 10/24/2023 4:42 pm Rodríguez Wu DO Signed (Electronic Signature): 10/24/2023 4:42 pm Signed by: Rodríguez Wu DO Transcribed by: JOSE MARIA Technologist: LINDA Maxwell [facility] XR Chest 2 Viewson 3 XR Chest 2 Views Exam Date/Time: 10/22/2023 11:26 EST Reason for Exam: P.A.T. Report IMPRESSION: NO EVIDENCE OF ACTIVE CHEST DISEASE. CLINICAL HISTORY: P.A.T.. COMPARISON: 11/30/2020. COMMENT: The heart is normal in size. The mediastinum is unremarkable. The lungs appear clear. No infiltration nor pleural effusion is evident. No significant change is noted when compared to the prior exam. Ordering Provider: Elliott Ahmad FINAL REPORT Dictated: 10/23/2023 7:49 am Matt Prescott M.D. Signed (Electronic Signature): 10/23/2023 7:49 am Signed by: Matt Prescott M.D. Transcribed by: JOSE MARIA Technologist: MAYE Technical Comments Radiation Dose: Ka,r in mGy = na DAP = na Normal [facility] ABO/Rh Retypeon 10-22-2023 ABO/Rh Retype Interp Positive Invalid Interpretation Code [facility] Comment on above: Performed By: #### 1 [id number] ####[facility] [address] [place] [address] Auto Diffon 10-22-2023 Basophils/100 WBC (Bld) 1.3 % Normal 0.0-2.0 F [facility] Comment on above: Order Comment: Order Added by Discern Expert. Performed By: #### 2 533592, 3936518, [id number], 1340040 ####[address] [place] [address] Basophils/Leukocytes Auto (Bld) [Pure # fraction] 0.0 E9/L Normal 0.0-0.2 [facility] Comment on above: Order Comment: Order Added by Discern Expert. Performed By: #### 2 957560, 2430124, 09241064, 1997711 ####[facility] [address] [place] [address] Eosinophils/100 WBC (Bld) 5.4 % Normal 0.0-8.0 [facility] Comment on above: Order Comment: Order Added by Discern Expert. Performed By: #### 2 186018, 4182215, 29105434, 7170801 ####[facility] [address] [place] [address] Eosinophils/Leukocytes Auto (Bld) [Pure # fraction] 0.2 E9/L Normal 0.0-0.5 [facility] Comment on above: Order Comment: Order Added by Discern Expert. Performed By: #### 2 378684, 5833843, 88354816, 6453554 ####[address] [place] [address] Lymphocytes/100 WBC (Bld) 25.2 % Normal 14.0-50.0 [facility] Comment on above: Order Comment: Order Added by Discern Expert. Performed By: #### 2 461222, 3682293, 94523838, 4244642 ####[address] [address] Lymphocytes/Leukocytes Auto (Bld) [Pure # fraction] 0.7 E9/L Low 1.0-4.0 [facility] Comment on above: Order Comment: Order Added by Discern Expert. Performed By: #### 2 996880, 9023051, 81756357, 7335045 ####[address] [address] Monocytes/100 WBC (Bld) 11.3 % Normal 4.0-14.0 [facility] Comment on above: Order Comment: Order Added by Discern Expert. Performed By: #### 2 154994, 9707804, 42765005, 7455858 ####[address] [address] Monocytes/Leukocytes Auto (Bld) [Pure # fraction] 0.3 E9/L Normal 0.2-1.0 [facility] Comment on above: Order Comment: Order Added by Mercedes Expert. Performed By: #### 2 353728, 1932119, 76342231, 4843444 ####[address] [address] Neutrophils/100 WBC (Bld) 56.8 % Normal 36.0-75.0 [facility] Comment on above: Order Comment: Order Added by Discern Expert. Performed By: #### 2 475296, 8535858, 39333299, 8905335 ####[address] [place] [address] Neutrophils/Leukocytes Auto (Bld) [Pure # fraction] 1.6 E9/L Low 2.0-7.5 [facility] Comment on above: Order Comment: Order Added by Discern Expert. Performed By: #### 2 751496, 2403131, 79327164, 5730644 ####[facility] [address] [place] [address] BLOOD BANKOrdered By: Elton Madsen on 10-22-2023 ABO/Rh Retype Interp Positive Invalid Interpretation Code [facility] BB Subsection BMPon 10-22-2023 Anion gap [Moles/Vol] 13 mmol/L Normal 6-16 [facility] Comment on above: Performed By: #### 2 576633, 8097436, 10500882, 9901973 ####[facility] [address] [place] [address] Calcium [Mass/Vol] 9.1 mg/dL Normal 8.9-11.1 [facility] Comment on above: Performed By: #### 2 633361, 9863018, 39134789, 8732840 ####[facility] [address] [place] [address] Chloride [Moles/Vol] 110 mmol/L Normal 101-111 [facility] Comment on above: Performed By: #### 2 436501, 5745640, 98263479, 6587366 ####[facility] [address] [place] [address] CO2 [Moles/Vol] 21 mmol/L Normal 21-31 [facility] Comment on above: Performed By: #### 2 411361, 7849839, 14257652, 4732804 ####[facility] [address] [place] [address] Creatinine [Mass/Vol] 0.6 mg/dL Normal 0.5-1.3 [facility] Comment on above: Performed By: #### 2 734178, 7990793, 63373745, 3500480 ####[facility] [address] [place] [address] Glucose [Mass/Vol] 109 mg/dL Normal 55-199 [facility] Comment on above: Result Comment: If t his glucose result represents a fasting glucose, interpretation should refer to the following reference range: 55-99 mg/dL Performed By: #### 2 055691, 3257598, 00004199, 1865826 ####[facility] [address] [place] [address] Potassium [Moles/Vol] 3.9 mmol/L Normal 3.5-5.3 [facility] Comment on above: Performed By: #### 2 223801, 3653363, 41566639, 6729437 ####[facility] [address] [place] [address] Sodium [Moles/Vol] 140 mmol/L Normal 135-145 [facility] Comment on above: Performed By: #### 2 450234, 1314711, 05732293, 7984135 ####[facility] [address] [place] [address] Urea nitrogen [Mass/Vol] 13 mg/dL Normal 5-21 [facility] Comment on above: Performed By: #### 2 443669, 4980782, 88714509, 9899136 ####[facility] [address] [place] [address] Urea nitrogen/Creatinine [Mass ratio] 22 No Units High 10-20 [facility] Comment on above: Performed By: #### 2 254305, 7269947, 95657886, 6247708 ####[facility] [address] [place] [address] CBC w/ Auto Diffon 3 Erythrocyte distribution width (RBC) [Ratio] 12.4 % Normal 10.9-14.2 [facility] Comment on above: Performed By: #### 2 285268, 4065573, 91573973, 2421386 ####[address] [place] [address] Hematocrit (Bld) [Volume fraction] 41.1 % Normal 37.7-49.0 [facility] Comment on above: Performed By: #### 2 490220, 5281446, 52130680, 2451084 ####[address] [place] [address] Hemoglobin (Bld) [Mass/Vol] 13.9 g/dL Normal 13.5-17.5 [facility] Comment on above: Performed By: #### 2 416187, 8521562, 95134109, 2724737 ####[address] [address] MCH (RBC) [Entitic mass] 30.9 pg Normal 27.0-34.0 [facility] Comment on above: Performed By: #### 2 664133, 3232483, 82104616, 1721331 ####[address] [address] MCHC (RBC) [Mass/Vol] 33.8 g/dL Normal 31.4-36.0 [facility] Comment on above: Performed By: #### 2 203656, 2764382, 63495094, 1857047 ####[address] [address] MCV (RBC) [Entitic vol] 91.5 fL Normal 80.0-100.0 F [facility] Comment on above: Performed By: #### 2 374464, 3876933, 35593418, 9923842 ####[address] [address] Platelet mean volume (Bld) [Entitic vol] 8.5 fL Normal 6.4-10.8 [facility] Comment on above: Performed By: #### 2 773354, 7658545, 70356966, 7879504 ####[address] [address] Platelets (Bld) [#/Vol] 196.0 E9/L Normal 150.0-500.0 [facility] Comment on above: Performed By: #### 2 814832, 6249699, 01426073, 4028388 ####[address] [address] RBC (Bld) [#/Vol] 4.5 E12/L Normal 4.3-5.9 [facility] Comment on above: Performed By: #### 2 707495, 7064024, 73103025, 5352672 ####[facility] [address] [place] [address] WBC corrected for nucl RBC Auto (Bld) [#/Vol] 2.9 E9/L Low 4.0-11.0 [facility] Comment on above: Performed By: #### 2 347629, 7218530, 68116932, 9227262 ####[facility] [address] [place] [address] CHEMISTRYOrdered By: Marci pond on 10-22-2023 Anion gap [Moles/Vol] 13 mmol/L Normal 6 - 16 mEq/L [facility] Calcium [Mass/Vol] 9.1 mg/dL Normal 8.9 - 11. 1 mg/dL [facility] Chloride [Moles/Vol] 110 mmol/L Normal 101 - 1 11 mmol/L [facility] CO2 [Moles/Vol] 21 mmol/L Normal 21 - 31 mmol/L [facility] Creatinine [Mass/Vol] 0.6 mg/dL Normal 0.5 - 1.3 mg/dL [facility] Glucose [Mass/Vol] 109 mg/dL Normal 55 - 199 mg/dL [facility] Remisol Comment on above: Interpretive Data: I f this glucose result represents a fasting glucose, interpretation should refer to the following reference range: 55-99 mg/dL Potassium [Moles/Vol] 3.9 mmol/L Normal 3.5 - 5.3 mmol/L [facility] Sodium [Moles/Vol] 140 mmol/L Normal 135 - 145 mmol/L [facility] Urea nitrogen [Mass/Vol] 13 mg/dL Normal 5 - 21 mg/dL [facility] Urea nitrogen/Creatinine [Mass ratio] 22 mg/mg High 10 - 20 [facility] CHEMISTRYOrdered By: SYSTEM SYSTEM on 10-22-2023 GFR/1.73 sq M.predicted among non-blacks MDRD (S/P/Bld) [Vol rate/Area] 109 mL/min/1.73 m2 Normal >=59mL/min/1 .73 m2 [facility] Chem S Comment on above: Interpretive Data: C hronic kidney disease could be indicated at eGFR's of less than 60 mL/min/1.73m2. Kidney failure is indicated at less than 15 mL/min/1.73m2. Consent for Treatmenton 10-03 Consent for Treatment [id number]#1 .00TIFF Normal [facility] HEMATOLOGYOrdered By: SYSTEM SYSTEM on 10-22-2023 Basophils/100 WBC (Bld) 1.3 % Normal 0.0 - 2.0 % [facility] HemeAutoSS Basophils/Leukocytes Auto (Bld) [Pure # fraction] 0.0 E9/L Normal 0.0 - 0.2 E9/L [facility]eAutoSS Eosinophils/100 WBC (Bld) 5.4 % Normal 0.0 - 8.0 % [facility] HemeAutoSS Eosinophils/Leukocytes Auto (Bld) [Pure # fraction] 0.2 E9/L Normal 0.0 - 0.5 E9/L [facility] HemeAutoSS Lymphocytes/100 WBC (Bld) 25.2 % Normal 14.0 - 50.0 % [facility] HemeAutoSS Lymphocytes/Leukocytes Auto (Bld) [Pure # fraction] 0.7 E9/L Low 1.0 - 4.0 E9/L [facility] HemeAutoSS Monocytes/100 WBC (Bld) 11.3 % Normal 4.0 - 14.0 % [facility] HemeAutoSS Monocytes/Leukocytes Auto (Bld) [Pure # fraction] 0.3 E9/L Normal 0.2 - 1.0 E9/L [facility]eAutoSS Neutrophils/100 WBC (Bld) 56.8 % Normal 36.0 - 75.0 % [facility]eAutoSS Neutrophils/Leukocytes Auto (Bld) [Pure # fraction] 1.6 E9/L Low 2.0 - 7.5 E9/L [facility]eAuto[facility] HEMATOLOGYOrdered By: Wendi maxwell on 10-22-2023 Erythrocyte distribution width (RBC) [Ratio] 12.4 % Normal 10.9 - 14.2 % [facility] Hematocrit (Bld) [Volume fraction] 41.1 % Normal 37.7 - 49.0 % [facility]eAuto[facility] Hemoglobin (Bld) [Mass/Vol] 13.9 g/dL Normal 13.5 - 17.5 gm/dL [facility] MCH (RBC) [Entitic mass] 30.9 pg Normal 27.0 - 34.0 pg [facility] MCHC (RBC) [Mass/Vol] 33.8 g/dL Normal 31.4 - 36.0 gm/dL [facility] MCV (RBC) [Entitic vol] 91.5 fL Normal 80.0 - 100.0 fL [facility] Platelet mean volume (Bld) [Entitic vol] 8.5 fL Normal 6.4 - 10.8 fL [facility]eAuto[facility] Platelets (Bld) [#/Vol] 196.0 E9/L Normal 150. 0 - 500.0 E9/L [facility]eAuto[facility] RBC (Bld) [#/Vol] 4.5 E12/L Normal 4.3 - 5.9 E12/L [facility] WBC corrected for nucl RBC Auto (Bld) [#/Vol] 2.9 E9/L Low 4.0 - 11.0 E9/L [facility] UA With Cult Reflexon 2022 Bilirubin Ql (U) Negative Normal Negative [facility] Comment on above: Performed By: #### 1 [id number] ####[facility] [address] [place] [address] Clarity (U) CLEAR Normal Clear [facility] Comment on above: Performed By: #### 1 0671616 ####[facility] [address] [place] [address] Color (U) YELLOW Normal Yellow [facility] Comment on above: Performed By: #### 1 9939908 ####[facility] [address] [place] [address] Epithelial cells.squamous LM.HPF (Urine sed) [#/Area] 0-2 Normal 0-2 [facility] Comment on above: Performed By: #### 1 0292535 ####[facility] [address] [place] [address] Glucose Test strip (U) [Mass/Vol] Negative Normal Negative [facility] Comment on above: Performed By: #### 1 1406748 ####[facility] [address] [place] [address] Hemoglobin Ql (U) Negative Normal Negative [facility] Comment on above: Performed By: #### 1 7486761 ####[facility] [address] [place] [address] Ketones (U) [Mass/Vol] Negative Normal Negative [facility] Comment on above: Performed By: #### 1 [id number] ####[address] [place] [address] Talpa.plasma/Talpa. RBC (Bld) [Mass ratio] 0-3 Normal 0-3 [facility] Comment on above: Performed By: #### 1 1681252 ####[address] [address] Nitrite Ql (U) Negative Normal Negative [facility] Comment on above: Performed By: #### 1 0546936 ####[address] [address] pH (U) 7.5 [pH] Invalid Interpretation Code 5.0-9.0 [facility] Comment on above: Performed By: #### 1 6317749 ####[address] [address] Protein (U) [Mass/Vol] Negative Normal Negative [facility] Comment on above: Performed By: #### 1 2499481 ####[address] [address] Specific gravity (U) [Rel density] 1.015 Invalid Interpretation Code 1.005-1.030 [facility] Comment on above: Performed By: #### 1 5748338 ####[address] [address] Type of Urine collection method Clean Catch Normal [facility] Comment on above: Performed By: #### 1 6076356 ####[address] [address] Urobilinogen Qn (U) 0.2 {Annette'U}/dL Normal 0.0-1.0 [facility] Comment on above: Performed By: #### 1 9103448 ####[facility] [address] [place] [address] WBC Auto Ql (U) Negative Normal Negative [facility] Comment on above: Performed By: #### 1 9027412 ####[facility] [address] [place] [address] WBC LM.HPF (Urine sed) [#/Area] 0-5 Normal 0-5 [facility] Comment on above: Performed By: #### 1 4021668 ####[facility] [address] [place] [address] URINALYSISOrdered By: Angie eLija on 10-22-2023 Bilirubin Ql (U) Negative (10/22/23 10:58 AM) Normal Negative [facility] UA Auto SS Clarity (U) Clear (10/22/23 10:58 AM) Normal Clear [facility] UA Auto SS Color (U) Yellow (10/22/23 10:58 AM) Normal Yellow [facility] UA Auto SS Epithelial cells.squamous LM.HPF (Urine sed) [#/Area] 0-2 /HPF Normal 0-2/HPF [facility] UA Aut o SS Glucose Test strip (U) [Mass/Vol] Negative (10/22/23 10:58 AM) Normal Negative [facility] UA Auto SS Hemoglobin Ql (U) Negative (10/22/23 10:58 AM) Normal Negative [facility] UA Auto SS Ketones (U) [Mass/Vol] Negative (10/22/23 10:58 AM) Normal Negative [facility] UA Auto SS Talpa.plasma/Talpa. RBC (Bld) [Mass ratio] 0-3 /HPF Normal 0-3/HPF [facility] UA A uto SS Nitrite Ql (U) Negative (10/22/23 10:58 AM) Normal Negative [facility] UA Auto SS pH (U) 7.5 *NA* (10/22/23 10:58 AM) Invalid Interpretation Code 5.0 - 9.0 [facility] UA Auto SS Protein (U) [Mass/Vol] Negative (10/22/23 10:58 AM) Normal Negative [facility] UA Auto SS Specific gravity (U) [Rel density] 1.015 *NA* (10/22/23 10:58 AM) Invalid Interpretation Code 1.005 - 1.030 [facility] UA Auto SS UA Spec Desc Clean Catch (10/22/23 10:58 AM) Normal [facility] UA Auto SS Urobilinogen Qn (U) 0.6953832 {Annette'U}/dL Normal 0.0 - 1.0 EU/dL [facility] UA Auto SS WBC Auto Ql (U) Negative (10/22/23 10:58 AM) Normal Negative [facility] UA Auto SS WBC LM.HPF (Urine sed) [#/Area] 0-5 /HPF Normal 0-5/HPF [facility] UA Auto SS eGFRon 10-22-2023 GFR/1.73 sq M.predicted among non-blacks MDRD (S/P/Bld) [Vol rate/Area] 109 mL/min/1.73 m2 Normal >=59 [facility] Comment on above: Order Comment: Order added by Discern Expert. Result Comment: Brazer Resistance daniel kidney disease could be indicated at eGFR's of less than 60 mL/min/1.73m2. Kidney failure is indicated at less than 15 mL/min/1.73m2. Performed By: #### 2 018348, 5968696, 80476939, 2250953 ####[facility] [address] [place] [address] Insurance Correspondenceon 1 12-08-2022 Insurance Correspondence [id number]# 1.00TIFF [facility] Physician Orderon 10-08-2023 Physician Order [id number]# 1.00TIFF [facility] Physician Orderon 09-03-2023 Physician Order [id number]#1 .00CD:127 [facility] Physician Order [id number]#1. 00CD:127 Normal [facility] Consenton 07-24-2023 Consent [id number]#1 .00CD:127 Normal [facility] Registrationon 07-24-2023 Registration [id number]#1 .00CD:127 Normal [facility] Alanine aminotransferase [En zymatic activity/volume] in Serum or PlasmaOrdered By: Florinda Pierce on 06-12-2023 ALT [Catalytic activity/Vol] 22 U/L 7-52 [facility] Albumin [Mass/volume] in Ser um or Plasma by Bromocresol green (BCG) dye binding methoOrdered By: Florinda Pierce on 06-12-2023 Albumin BCG dye [Mass/Vol] 4.7 g/dL 3.5-5.7 [facility] Alkaline phosphatase [Enzyma tic activity/volume] in Serum or PlasmaOrdered By: Florinda Pierce on 06-12-2023 ALP [Catalytic activity/Vol] 80 U/L 34-104 [facility] Aspartate aminotransferase [ Enzymatic activity/volume] in Serum or PlasmaOrdered By: Florinda Pierce on 06-12-2023 AST [Catalytic activity/Vol] 23 U/L 13-39 [facility] Basophils Auto (Bld) [#/Vol] Ordered By: Florinda Pierce on 06-12-2023 Basophils (Bld) [#/Vol] 0.0 10*3/uL 0.0-0.2 [facility] Basophils/100 WBC Auto (Bld) Ordered By: Florinda Pierce on 06-12-2023 Basophils/100 WBC (Bld) 0.6 % . F [facility] Bilirubin.total [Mass/volume ] in Serum or PlasmaOrdered By: Florinda Pierce on 06-12-2023 Bilirubin [Mass/Vol] 0.4 mg/dL 0.3-1.0 [facility] Calcium [Mass/volume] in Ser um or PlasmaOrdered By: Florinda Pierce on 06-12-2023 Calcium [Mass/Vol] 9.4 mg/dL 8.6-10.3 [facility] Carbon dioxide, total [Moles /volume] in Serum or PlasmaOrdered By: Florinda Pierce on 06-12-2023 CO2 [Moles/Vol] 28.7 mmol/L 21.0-31.0 [facility] Chloride [Moles/volume] in S rhonda or PlasmaOrdered By: Florinda Pierce on 06-12-2023 Chloride [Moles/Vol] 105 mmol/L 98-107 [facility] Cholesterol [Mass/volume] in Serum or PlasmaOrdered By: Florinda Pierce on 06-12-2023 Cholesterol [Mass/Vol] 203 mg/dL 140-200 [facility] Comment on above: Chol less than 200 m g/dl low riskChol 201-239 mg/dl borderline riskChol 240 mg/dl and greater high risk Cholesterol in LDL Calc [Mas s/Vol]Ordered By: Florinda Pierce on 06-12-2023 Cholesterol in LDL [Mass/Vol] 125 mg/dL 0-100 [facility] Comment on above: LDL ATP III CLASSIFI CATIONLDL less than 100 mg/dL OptimalLDL 100-129 mg/dL Near or above optimalLDL 130-159 mg/dL Borderline highLDL 160-189 mg/dL HighLDL greater than 189 mg/dL Very high Cholesterol in VLDL Calc [Ma ss/Vol]Ordered By: Florinda Pierce on 06-12-2023 Cholesterol in VLDL [Mass/Vol] 15 mg/dL [facility] Creatinine [Mass/volume] in Serum or PlasmaOrdered By: Florinda Pierce on 06-12-2023 Creatinine [Mass/Vol] 0.80 mg/dL 0.70-1.30 [facility] Eosinophils Auto (Bld) [#/Vo l]Ordered By: Florinda Pierce on 06-12-2023 Eosinophils (Bld) [#/Vol] 0.2 10*3/uL 0.0-0.45 [facility] Eosinophils/100 WBC Auto (Bl d)Ordered By: Florinda Pierce on 06-12-2023 Eosinophils/100 WBC (Bld) 5.1 % . [facility] Erythrocyte distribution wid th Auto (RBC) [Ratio]Ordered By: Florinda Pierce on 06-12-2023 Erythrocyte distribution width (RBC) [Ratio] 13.2 % 12.0-14.8 [facility] Globulin Calc (S) [Mass/Vol] Ordered By: Florinda Pierce on 06-12-2023 Globulin (S) [Mass/Vol] 2.9 g/dL F [facility] Glucose [Mass/volume] in Ser um or PlasmaOrdered By: Florinda Pierce on 06-12-2023 Glucose [Mass/Vol] 104 mg/dL 70-100 [facility] Comment on above: ADA recommended refe rence rangeRandom Glucose Reference Range is dependent on time and content of last meal. Glucose of more than 200 mg/dL in a nonstressed, ambulatory subject supports the diagnosis of Diabetes Mellitus. Hematocrit Auto (Bld) [Volum e fraction]Ordered By: Florinda Pierce on 06-12-2023 Hematocrit (Bld) [Volume fraction] 42.1 % 38.8-50.0 [facility] Hemoglobin [Mass/volume] in BloodOrdered By: Florinda Pierce on 06-12-2023 Hemoglobin (Bld) [Mass/Vol] 14.3 g/dL 13.0-17.0 [facility] Leukocytes [#/volume] correc robin for nucleated erythrocytes in Blood by Automated counOrdered By: Florinda Pierce on 06-12-2023 WBC corrected for nucl RBC Auto (Bld) [#/Vol] 3.6 10*3/uL 4.1-10.5 [facility] Lymphocytes Auto (Bld) [#/Vo l]Ordered By: Florinda Pierce on 06-12-2023 Lymphocytes (Bld) [#/Vol] 0.8 10*3/uL 1.00-4.8 [facility] Lymphocytes/100 WBC Auto (Bl d)Ordered By: Florinda Pierce on 06-12-2023 Lymphocytes/100 WBC (Bld) 23.1 % . [facility] MCH Auto (RBC) [Entitic mass ]Ordered By: Florinda Pierce on 06-12-2023 MCH (RBC) [Entitic mass] 31.6 pg 27.5-35.2 [facility] MCHC Auto (RBC) [Mass/Vol]Or dered By: Florinda Pierce on 06-12-2023 MCHC (RBC) [Mass/Vol] 33.9 g/dL 32.5-35.6 [facility] MCV Auto (RBC) [Entitic vol] Ordered By: Florinda Pierce on 06-12-2023 MCV (RBC) [Entitic vol] 93.1 fL 83.5-101 [facility] Monocytes Auto (Bld) [#/Vol] Ordered By: Florinda Pierce on 06-12-2023 Monocytes (Bld) [#/Vol] 0.4 10*3/uL 0.0-0.8 [facility] Monocytes/100 WBC Auto (Bld) Ordered By: Florinda Pierce on 06-12-2023 Monocytes/100 WBC (Bld) 10.9 % . F [facility] Neutrophils Auto (Bld) [#/Vo l]Ordered By: Florinda Pierce on 06-12-2023 Neutrophils (Bld) [#/Vol] 2.2 10*3/uL 1.8-7.7 [facility] [facility] WBC Auto (Bl d)Ordered By: Florinda Pierce on 06-12-2023 Neutrophils/100 WBC (Bld) 60.3 % . [facility] No Panel InformationOrdered By: Florinda Pierce on 06-12-2023 Estimated GFR (CKD-EPI) > 60.0 mL/Min [facility] Creatinine Clearance (Chem N/A [facility] Nucleated erythrocytes [Pres ence] in Blood by Automated countOrdered By: Florinda Pierce on 06-12-2023 Nucleated RBC Auto Ql (Bld) 0.1 /100{WBC} 0-0.5 [facility] Platelet mean volume Auto (B ld) [Entitic vol]Ordered By: Florinda Pierce on 06-12-2023 Platelet mean volume (Bld) [Entitic vol] 8.3 fL 6.6-10.1 [facility] Platelets Auto (Bld) [#/Vol] Ordered By: Florinda Pierce on 06-12-2023 Platelets (Bld) [#/Vol] 204 10*3/uL 150-450 [facility] Potassium [Moles/volume] in Serum or PlasmaOrdered By: Florinda Pierce on 06-12-2023 Potassium [Moles/Vol] 4.2 mmol/L 3.5-5.1 [facility] Prostate specific Ag [Mass/v olume] in Serum or PlasmaOrdered By: Florinda Pierce on 06-12-2023 Prostate specific Ag [Mass/Vol] 0.730 ng/mL 0.000-4.000 [facility] Protein [Mass/volume] in Ser um or PlasmaOrdered By: Florinda Pierce on 06-12-2023 Protein [Mass/Vol] 7.6 g/dL 6.4-8.9 [facility] RBC Auto (Bld) [#/Vol]Ordere d By: Florinda Pierce on 06-12-2023 RBC (Bld) [#/Vol] 4.52 10*6/uL 3.90-5.60 [facility] Serum or plasma albumin/glob ulin mass ratioOrdered By: Florinda Pierce on 06-12-2023 Albumin/Globulin [Mass ratio] 1.6 {ratio} [facility] Serum or plasma anion gap de terminationOrdered By: Florinda Pierce on 06-12-2023 Anion gap [Moles/Vol] 10.5 mmol/L 6.0-15.0 [facility] Serum or plasma high density lipoprotein (HDL) cholesterol measurementOrdered By: Florinda Pierce on 06-12-2023 Cholesterol in HDL [Mass/Vol] 63 mg/dL 23-92 [facility] Comment on above: HDL CHOL ATP-III CLA SSIFICATION Cardiovascular RiskHDL > or equal to 60 mg/dL LOWHDL < 40 mg/dL HIGH Serum or plasma total choles terol/high density lipoprotein (HDL) cholesterol mass ratOrdered By: Florinda Pierce on 06-12-2023 Cholesterol.total/[place] sterol in HDL [Mass ratio] 3.2 {ratio} <5.0 [facility] Sodium [Moles/volume] in Ser um or PlasmaOrdered By: Florinda Pierce on 06-12-2023 Sodium [Moles/Vol] 140 mmol/L 136-145 [facility] Thyrotropin [Units/volume] i n Serum or PlasmaOrdered By: Florinda Pierce on 06-12-2023 TSH Qn 5.60 m[IU]/L 0.45-5.33 [facility] Thyroxine (T4) free [Mass/vo lume] in Serum or PlasmaOrdered By: Florinda Pierce on 06-12-2023 Free T4 [Mass/Vol] 0.54 ng/dL 0.61-1.12 [facility] Triglyceride [Mass/volume] i n Serum or PlasmaOrdered By: Florinda Pierce on 06-12-2023 Triglyceride [Mass/Vol] 75 mg/dL 0-149 [facility] Comment on above: TRIG ATP III CLASSIF ICATIONTRIG less than 150 mg/dL NormalTRIG 150-199 mg/dL Borderline highTRIG 200-500 mg/dL High TRIG greater than 500 mg/dL Very highStandard traceable to the Center for Disease Conrtrol and Prevention (CDC) test method. Urea nitrogen [Mass/volume] in Serum or PlasmaOrdered By: Florinda Pierce on 06-12-2023 Urea nitrogen [Mass/Vol] 15 mg/dL 7-25 [facility] Vitamin B12 ser/plasOrdered By: Florinda Pierce on 06-12-2023 Cobalamin (Vitamin B12) [Mass/Vol] 4585 pg/mL 180-914 [facility] Vitamin D+Metabolites [Mass/ volume] in Serum or PlasmaOrdered By: Florinda Pierce on 06-12-2023 Vitamin D+Metabolites [Mass/Vol] 51.4 ng/mL 30-100 [facility] Comment on above: VITAMIN D STATUS 25( [place])VITAMIN D RANGE (ng/mL) Deficient <20 Insufficient 20 to <30Sufficient 30 to 100Reference: Vickie MF,Rosina NC, [place] EDWARDS, et al. Evaluation,treatment, and prevention of vitamin D deficiency; an Endocrine Society clinical practice guideline. JCEM. 2010; 96(7):1911-30. WBC Auto (Bld) [#/Vol]Ordere d By: Florinda Pierce on 06-12-2023 WBC (Bld) [#/Vol] 3.6 10*3/uL 4.1-10.5 [facility] Consenton 05-02-2023 Consent [id number]# 1.00CD:127 Normal [facility] Registrationon 05-02-2023 Registration [id number]# 1.00CD:127 Normal [facility] PHENOBARBITOL, UNBOUNDon Phenobarbital, Unbound 7.1 ug/ml Normal 6.0 - 20.0 [facility] Comment on above: Performed By: #### P HNFREE #### [facility] [address] [address] [address] Alyce Barney PHENYTOIN, FREE AND TOTALon 01-28-2023 Phenytoin, Free, Serum 0.8 ug/mL Critically low 1.0-2.0 [facility] Comment on above: Result Comment: Dete ction Limit = 0.5 Performed By: #### P HENFT #### [facility] [address] [place] [address] Dr. Alyce Barney Phenytoin, Serum 12.8 ug/mL Normal 10.0-20.0 [facility] Comment on above: Result Comment: Dete ction Limit = 0.8 <0.8 Indicates None Detected Performed By: #### P HENFT #### [facility] [address] [place] [address] Dr. Alyce Barney PHENOBARBITALon 01-25-2023 Phenobarbital, Serum 13 ug/mL Critically low 15-40 [facility] Comment on above: Result Comment: Dete ction Limit = 3 Performed By: #### P HENOB #### [facility] [address] [place] [address] Dr. Alyce Barney Vital Signs Date Time Vital Sign Value Performing Clinician Facility 07-28-2024 13:51-0400 Body height 182.88 cm MD Johnnie Muller Work Phone: [facility] 07-28-2024 13:51-0400 Body mass index (BMI) [Ratio] 29 kg/m2 MD Johnnie Muller Work Phone: [facility] 07-28-2024 13:51-0400 Body weight 97.06 kg MD Johnnie Muller Work Phone: [facility] 07-07-2024 08:22-0400 Body height 182.88 cm MD Johnnie Muller Work Phone: [facility] 07-07-2024 08:22-0400 Body mass index (BMI) [Ratio] 29.7 kg/m2 MD Johnnie Muller Work Phone: [facility] 07-07-2024 08:22-0400 Body temperature 97.7 [degF] MD Johnnie Muller Work Phone: [facility] 07-07-2024 08:22-0400 Body weight 99.33 kg MD Johnnie Muller Work Phone: [facility] 07-07-2024 08:22-0400 Diastolic blood pressure 86 mm[Hg] MD Johnnie Muller Work Phone: [facility] 07-07-2024 08:22-0400 Heart rate 87 /min MD Johnnie Muller Work Phone: [facility] 07-07-2024 08:22-0400 SaO2% (BldA) [Mass fraction] 94 % MD Johnnie Muller Work Phone: [facility] 07-07-2024 08:22-0400 Systolic blood pressure 132 mm[Hg] MD Johnnie Muller Work Phone: [facility] 01-07-2024 16:48-0500 Body height 177.8 cm Amber Sipvey MD Work Phone: [facility] 01-07-2024 16:48-0500 Body mass index (BMI) [Ratio] 30.85 kg/m2 Amber Spivey MD Work Phone: [facility] 01-07-2024 16:48-0500 Body weight 97.52 kg Amber Spivey MD Work Phone: [facility] 01-07-2024 16:48-0500 Diastolic blood pressure 105 mm[Hg] Amber Spivey MD Work Phone: [facility] 01-07-2024 16:48-0500 Heart rate 90 /min Amber Spivey MD Work Phone: [facility] 01-07-2024 16:48-0500 Systolic blood pressure 165 mm[Hg] Amber Spivey MD Work Phone: [facility] 11-07-2023 10:29-0500 Hourly Rounding Pipe Chou [facility] 11-07-2023 10:29-0500 Promise to Return Pipe Chou [facility] 11-07-2023 09:00-0500 Hourly Rounding Pipe Chou [facility] 11-07-2023 09:00-0500 Promise to Return Pipe Chou [facility] 11-07-2023 08:52-0500 Heart rate 90 /min Pipe Chou [facility] 11-07-2023 08:52-0500 SaO2% (BldA) [Mass fraction] 98 % Pipe Chou [facility] 11-07-2023 08:52-0500 Blood Pressure Location Pipe Chou [facility] 11-07-2023 08:52-0500 Body temperature 98.42 [degF] Pipe Chou [facility] 11-07-2023 08:52-0500 Diastolic blood pressure 68 mm[Hg] Pipe Chou [facility] 11-07-2023 08:52-0500 Respiratory rate 18 /min Pipe Chou [facility] 11-07-2023 08:52-0500 Systolic blood pressure 122 mm[Hg] Pipe Chou [facility] 11-07-2023 08:33-0500 SaO2% (BldA) [Mass fraction] 97 % Pipe Chou [facility] 11-07-2023 08:00-0500 Hourly Rounding Pipe Chou [facility] 11-07-2023 08:00-0500 Promise to Return Pipe Chou [facility] 11-07-2023 04:30-0500 Blood Pressure Location Pipe Chou [facility] 11-07-2023 04:30-0500 Body temperature 98.78 [degF] Pipe Chou [facility] 11-07-2023 04:30-0500 Diastolic blood pressure 70 mm[Hg] Pipe Chou [facility] 11-07-2023 04:30-0500 Heart rate 88 /min Pipe Chou [facility] 11-07-2023 04:30-0500 Mean blood pressure 89 mm[Hg] Pipe Chou [facility] 11-07-2023 04:30-0500 SaO2% (BldA) [Mass fraction] 96 % Pipe Chou [facility] 11-07-2023 04:30-0500 Systolic blood pressure 126 mm[Hg] Pipe Chou [facility] 11-07-2023 00:00-0500 Blood Pressure Location Pipe Chou [facility] 11-07-2023 00:00-0500 Diastolic blood pressure 65 mm[Hg] Pipe Chou [facility] 11-07-2023 00:00-0500 Heart rate 77 /min Pipe Chou [facility] 11-07-2023 00:00-0500 Mean blood pressure 82 mm[Hg] Pipe Chou [facility] 11-07-2023 00:00-0500 Systolic blood pressure 116 mm[Hg] Pipe Chou [facility] 11-06-2023 19:45-0500 Body temperature 98.24 [degF] Pipe Brown [facility] 11-06-2023 19:44-0500 Mean blood pressure 89 mm[Hg] Pipe Brown [facility] 11-06-2023 14:39-0500 Respiratory rate 18 /min Pipe Chou [facility] 11-06-2023 14:38-0500 Mean blood pressure 99 mm[Hg] Pipe Chou [facility] 11-06-2023 14:30-0500 Body temperature 97.7 [degF] Pipe Chou [facility] 11-06-2023 14:30-0500 Respiratory rate 16 /min Pipe Brown [facility] 11-06-2023 14:30-0500 Respiratory rate 9 /min Pipe Chou [facility] 11-06-2023 14:20-0500 Respiratory rate 15 /min Pipe Chou [facility] 11-06-2023 13:27-0500 Body temperature 97.7 [degF] Pipe Brown [facility] 11-06-2023 13:22-0500 Respiratory rate 16 /min Pipe Brown [facility] 11-06-2023 09:02-0500 Mean blood pressure 103 mm[Hg] Pipe Brown [facility] 11-06-2023 09:00-0500 Body temperature 97.7 [degF] Pipe Brown [facility] 10-22-2023 10:29-0500 Respiratory rate 18 /min Pipe Chou [facility] 10-22-2023 10:28-0500 Body temperature 97.52 [degF] Pipe Chou [facility] 10-22-2023 10:28-0500 Diastolic blood pressure 90 mm[Hg] Pipe Chou [facility] 10-22-2023 10:28-0500 Heart rate 66 /min Pipe Chou [facility] 10-22-2023 10:28-0500 Mean blood pressure 109 mm[Hg] Pipe Chou [facility] 10-22-2023 10:28-0500 Systolic blood pressure 148 mm[Hg] Pipe Chou [facility] 10-22-2023 10:28-0500 Heart rate 75 /min Pipe Chou [facility] 10-22-2023 10:28-0500 SaO2% (BldA) [Mass fraction] 94 % Pipe Chou [facility] 10-22-2023 10:27-0500 Diastolic blood pressure 93 mm[Hg] Pipe Chou [facility] 10-22-2023 10:27-0500 Mean blood pressure 114 mm[Hg] Pipe Chou [facility] 10-22-2023 10:27-0500 Systolic blood pressure 154 mm[Hg] Pipe Chou [facility] 08-19-2023 09:45-0400 Body height 182.88 cm Johnnie Muller Other [employer] Other 08-19-2023 09:45-0400 Body mass index (BMI) [Ratio] 28.75 kg/m2 Johnnie Muller Other [employer] Other 08-19-2023 09:45-0400 Body temperature 97.4 [degF] Johnnie Muller Other [employer] Other 08-19-2023 09:45-0400 Body weight 96.16 kg Johnnie Muller Other [employer] Other 08-19-2023 09:45-0400 Diastolic blood pressure 84 mm[Hg] Johnnie Muller Other [employer] Other 08-19-2023 09:45-0400 SaO2% (BldA) [Mass fraction] 98 % Johnnie Muller Other [employer] Other 08-19-2023 09:45-0400 Systolic blood pressure 138 mm[Hg] Johnnie Muller Other [employer] Other 07-22-2023 10:30-0400 Body height 182.88 cm Johnnie Muller Other [employer] Other 07-22-2023 10:30-0400 Body mass index (BMI) [Ratio] 28.88 kg/m2 Johnnie Muller Other [employer] Other 07-22-2023 10:30-0400 Body temperature 96.9 [degF] Johnnie Muller Other [employer] Other 07-22-2023 10:30-0400 Body weight 96.62 kg Johnnie Muller Other [employer] Other 07-22-2023 10:30-0400 Diastolic blood pressure 82 mm[Hg] Johnnie Muller Other [employer] Other 07-22-2023 10:30-0400 SaO2% (BldA) [Mass fraction] 95 % Johnnie Muller Other [employer] Other 07-22-2023 10:30-0400 Systolic blood pressure 128 mm[Hg] Johnnie Muller Other [employer] Other 06-25-2023 16:15-0400 Body height 182.88 cm Johnnie Muller Other [employer] Other 06-25-2023 16:15-0400 Body mass index (BMI) [Ratio] 29.02 kg/m2 Johnnie Muller Other [employer] Other 06-25-2023 16:15-0400 Body weight 97.07 kg Johnnie Muller Other [employer] Other 06-25-2023 16:15-0400 Diastolic blood pressure 82 mm[Hg] Johnnie Muller Other [employer] Other 06-25-2023 16:15-0400 SaO2% (BldA) [Mass fraction] 96 % Johnnie Muller Other [employer] Other 06-25-2023 16:15-0400 Systolic blood pressure 132 mm[Hg] Johnnie Muller Other [employer] Other 06-12-2023 09:00-0400 Body height 182.88 cm Florindara Pierce Other [employer] Other 06-12-2023 09:00-0400 Body mass index (BMI) [Ratio] 28.61 kg/m2 Florindara Pierce Other [employer] Other 06-12-2023 09:00-0400 Body weight 95.71 kg Florinda Kari Other [employer] Other 06-12-2023 09:00-0400 Diastolic blood pressure 82 mm[Hg] Florinda Kari Other [employer] Other 06-12-2023 09:00-0400 SaO2% (BldA) [Mass fraction] 92 % Florinda Kari Other [employer] Other 06-12-2023 09:00-0400 Systolic blood pressure 130 mm[Hg] Florinda Kari Other [employer] Other 11-05-2022 10:00-0500 Body height 182.88 cm Johnnie Muller Other [employer] Other 11-05-2022 10:00-0500 Body mass index (BMI) [Ratio] 28.75 kg/m2 Johnnie Muller Other [employer] Other 11-05-2022 10:00-0500 Body temperature 98.1 [degF] Johnnie Muller Other [employer] Other 11-05-2022 10:00-0500 Body weight 96.16 kg Johnnie Muller Other [employer] Other 11-05-2022 10:00-0500 Diastolic blood pressure 80 mm[Hg] Johnnie Muller Other [employer] Other 11-05-2022 10:00-0500 SaO2% (BldA) [Mass fraction] 96 % Johnnie Muller Other [employer] Other 11-05-2022 10:00-0500 Systolic blood pressure 134 mm[Hg] Johnnie Muller Other [facility] [employer] Other 05-21-2022 13:20-0400 Diastolic blood pressure 74 mm[Hg] Galloway SALAM [facility] 05-21-2022 13:20-0400 Heart rate 68 /min Galloway SALAM [facility] 05-21-2022 13:20-0400 Respiratory rate 15 /min Galloway SALAM [facility] 05-21-2022 13:20-0400 SaO2% (BldA) [Mass fraction] 95 % Galloway SALAM [facility] 05-21-2022 13:20-0400 Systolic blood pressure 121 mm[Hg] Galloway SALAM [facility] 05-21-2022 13:10-0400 Diastolic blood pressure 72 mm[Hg] Galloway SALAM [facility] 05-21-2022 13:10-0400 Heart rate 81 /min Galloway SALAM [facility] 05-21-2022 13:10-0400 Respiratory rate 24 /min Galloway SALAM [facility] 05-21-2022 13:10-0400 SaO2% (BldA) [Mass fraction] 97 % Galloway SALAM [facility] 05-21-2022 13:10-0400 Systolic blood pressure 105 mm[Hg] Galloway SALAM [facility] 05-21-2022 13:05-0400 Diastolic blood pressure 65 mm[Hg] Galloway SALAM [facility] 05-21-2022 13:05-0400 Heart rate 65 /min Galloway SALAM [facility] 05-21-2022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
--- NOTE | 2024-09-16 11:24 | ED.GENADUL1 ---
HPI HPI - General Adult General Chief complaint: Wound/Laceration Stated complaint: UPPER EXTREMITY INJURY, LEFT Time Seen by Provider: 09/16/24 11:12 Source: patient Mode of arrival: walk-in Limitations: no limitations History of Present Illness HPI narrative: Patient presents to ED complaining of a finger laceration. He was trying to cut something open and the knife slipped and stabbed into his left index finger. Patient states he had just sharpened his knife and its his pocket knife. He was a little bit worried because it seemed deep so he came in for further evaluation. No other injury. He has full range of motion of the finger. He does not have an up-to-date tetanus shot. Not on blood thinners. No other lites this time Related Data Allergies Allergy/AdvReac Type Severity Reaction Status Date / Time No Known Drug Allergies Allergy Verified 09/16/24 11:17 Opioid HPI Opioid Management Most Recent Opioid Data: Last Pain Scale 5 09/16/24 11:35 09/16/24 Review of Systems ROS Status of ROS 10 or more systems reviewed and unremarkable except as noted in history and below PFSH PFSH Social History Little interest or pleasure in doing things: not at all Feeling down, depressed, or hopeless: not at all Exam Narrative Exam Narrative: General: alert, no acute distress Cardiovascular: regular rate and rhythm, normal peripheral perfusion. Respiratory: Lungs CTA, respirations non labored. Extremities: 1-1/2 cm laceration to the left index finger between the MCP and DIP joint. Normal strength sensation and cap refill. Neurological: oriented x 4, LOC appropriate for age. Constitutional Vital Signs, click to edit/add: Last Vital Signs Temp 98.4 F 09/16/24 11:14 Pulse 99 H 09/16/24 11:14 Resp 18 09/16/24 11:14 BP 183/104 H 09/16/24 11:14 Pulse Ox 96 09/16/24 11:14 O2 Del Method Room Air 09/16/24 11:14 Course Vital Signs Vital signs: Vital Signs Temperature 98.4 F 09/16/24 11:14 Pulse Rate 99 H 09/16/24 11:14 Respiratory Rate 18 09/16/24 11:14 Blood Pressure 183/104 H 09/16/24 11:14 Pulse Oximetry 96 09/16/24 11:14 Oxygen Delivery Method Room Air 09/16/24 11:14 Temperature 98.4 F 09/16/24 11:14 Pulse Rate 99 H 09/16/24 11:14 Respiratory Rate 18 09/16/24 11:14 Blood Pressure 183/104 H 09/16/24 11:14 Pulse Oximetry 96 09/16/24 11:14 Oxygen Delivery Method Room Air 09/16/24 11:14 Medical Decision Making MDM Narrative Medical decision making narrative: Wound was cleaned. Steri-Strips and Dermabond applied by nurse. Patient was also placed in a finger splint just to prevent bending over the next day or so. Watch for signs and symptoms of infection. Patient is not diabetic. Return to ED if worsening symptoms otherwise follow-up with family doctor as needed. Differential Diagnosis Differential Diagnosis: Laceration, tendon injury Discharge Plan Discharge Chief Complaint: Wound/Laceration Clinical Impression: Laceration Patient Disposition: Home, Self-Care Time of Disposition Decision: 11:57 Condition: Good Mode of Transportation: Private Vehicle Print Language: Malay Instructions: Finger Laceration (ED) Referrals: AMBER MANNING [Primary Care Provider] - 1 week
[2024-09-16] MEDS: ADACEL DIPH,PERTUSS(ACELL),TET VAC/PF 0.5 ML ADULT SYRINGE IM (11:45)
[2024-09-16 12:14] VITALS: BP 144/91; PULSE 94; O2SAT 100
== END 2024-09-16 12:16 | disposition home or self-care (01) ==
PROVIDERS: Emergency Provider Emergency Medicine; PCP Psychiatry & Neurology Neurology
DX: S61.211A Laceration without foreign body of left index finger without damage to nail, initial encounter (principal); W26.0XXA Contact with knife, initial encounter; Z23 Encounter for immunization
CPT/HCPCS: 12001; 90471; 90715; 99283